=== PATIENT | female | born 1935 | race Caucasian/White ===

== ENCOUNTER 2017-12-15 08:55 | Outpatient (CLI) | payer MEDICARE, BC | END 2017-12-15 08:56 | disposition home or self-care (01) | LOC: BICMAMMO 08:55 | PROVIDERS: ATTEND Obstetrics & Gynecology | DX: Z12.31 Encounter for screening mammogram for malignant neoplasm of breast (principal); Z80.3 Family history of malignant neoplasm of breast | CPT/HCPCS: 77063; 77067 ==

== ENCOUNTER 2018-05-25 09:47 | Outpatient (CLI) | payer MEDICARE, BC ==
--- NOTE | 2018-05-25 12:05 | RAD ---
BARIUM SWALLOW: HISTORY: Dyspnea. COMPARISON: None. TECHNIQUE/FINDINGS: The patient was brought to the fluoroscopy suite. All questions were answered. The patient was initially given gas-forming crystals. The patient tolerated this well. Subsequently , thick liquid contrast was given. Primary and secondary peristalsis was normal. No extrinsic mass effect. No diverticulum. No stricture. Next, the patient was given a barium tablet. The patient tolerated this well. Next, the patient was put in the [place] position and give thin liquid contrast, to continuously drain. The patient tolerated this well. Primary and secondary peristalsis is normal. No reflux. No tertia ry contractions. The patient was given a barium tablet, which passed with ease, without stricture. FLUOROSCOPY TIME: 0.8 minutes. IMPRESSION: Normal examination. No significant reflux, hernia, or stricture. POS: AARTI
== END 2018-05-25 09:48 | disposition home or self-care (01) ==
LOC: RAD 09:47
PROVIDERS: ATTEND Family Medicine
DX: R13.10 Dysphagia, unspecified (principal)
CPT/HCPCS: 74220

== ENCOUNTER 2019-04-01 14:28 | Outpatient (CLI) | payer MEDICARE, BC ==
--- NOTE | 2019-04-01 17:40 | MMO ---
Bilateral MAMMO Bilat Screen [facility]. CLINICAL HISTORY: Patient is 83 years old and is seen for screening. The patient has the following family history of breast cancer: sister, at age 77, malignant (generic). The patient has no personal history of cancer. VIEWS: The views performed were: bilateral craniocaudal with tomosynthesis and bilateral mediolateral oblique with tomosynthesis. FILMS COMPARED: The present examination has been compared to prior imaging studies performed at [facility] on 11/21/2012, 01/14/2014, 12/02/2016 and 12/15/2017. MAMMOGRAM FINDINGS: There are scattered fibroglandular densities. There are no suspicious masses, suspicious calcifications, or new areas of architectural distortion. IMPRESSION: THERE IS NO MAMMOGRAPHIC EVIDENCE OF MALIGNANCY. A ROUTINE FOLLOW-UP MAMMOGRAM IN 1 YEAR IS RECOMMENDED. THE RESULTS OF THIS EXAM WERE SENT TO THE PATIENT. ACR BI-RADS Category 1 - Negative MAMMOGRAPHY NOTE: 1. A negative mammogram report should not delay a biopsy if a dominant of clinically suspicious mass is present. 2. Approximately 10% to 15% of breast cancers are not detected by mammography. 3. Adenosis and dense breasts may obscure an underlying neoplasm.
== END 2019-04-01 14:29 | disposition home or self-care (01) ==
LOC: BICMAMMO 14:28
PROVIDERS: ATTEND Obstetrics & Gynecology
DX: Z12.31 Encounter for screening mammogram for malignant neoplasm of breast (principal); Z80.3 Family history of malignant neoplasm of breast
CPT/HCPCS: 77063; 77067

== ENCOUNTER 2019-07-23 11:19 | Outpatient (CLI) | payer OTHER | END 2019-07-23 11:20 | disposition home or self-care (01) | LOC: DTY/OP 11:19 | PROVIDERS: ATTEND Family Medicine | DX: R13.10 Dysphagia, unspecified (principal); K21.9 Gastro-esophageal reflux disease without esophagitis; F43.21 Adjustment disorder with depressed mood; E78.5 Hyperlipidemia, unspecified | CPT/HCPCS: 97802 ==

== ENCOUNTER 2021-05-15 20:58 | Inpatient (IN) | payer MEDICARE, BC ==
[2021-05-15] MEDS ORDERED: Lidocaine 1% (PF) 30 ML VIAL ONE (21:16)
[2021-05-15 21:36] LABS: #Basophils 0.1 thou/uL (0.0-0.2); #Eosinphils 0.1 thou/uL (0.0-0.7); #Lymphocytes 4.3 thou/uL (1.20-3.40); #Monocytes 0.6 thou/uL (0.11-0.59); #Neutrophils 5.6 thou/uL (1.40-6.50); %Basophils 0.9 % (0.0-1.0); %Eosinophils 0.8 % (0.0-10.0); %Lymphocytes 40.2 % (21.0-51.0); %Monocytes 5.2 % (0.0-10.0); %Neutrophils 52.9 % (42.0-75.0); Hemoglobin 15.7 g/dL (12.0-16.0); Mean Corpuscular Hemoglobin 33.2 pg (27.0-31.0); Mean Corpuscular Volume 97.6 fL (78.0-98.0); Mean Platelet Volume 7.9 fL (7.4-10.4); Platelet Count 232 thou/uL (130-400); RBC Distribution Width 11.6 % (11.5-14.5); Red Blood Cell (RBC) Count 4.73 mill/uL (4.20-5.40); White Blood Cell (WBC) Count 10.6 thou/uL (4.8-10.8)
[2021-05-15 22:05] LABS: ALT (SGPT) 64 U/L (8-55); AST (SGOT) 107 U/L (5-34); Albumin 4.2 g/dL (3.4-4.8); Alkaline Phosphatase 55 U/L (40-110); Anion Gap 21 mmol/L (10-20); BUN (Urea Nitrogen) 13 mg/dL (9.8-20.1); Bilirubin, Total 0.8 mg/dL (0.2-1.2); Calc. Creatinine Clearance 0 mL/min (70-130); Calcium 9.5 mg/dL (7.8-10.44); Carbon Dioxide 17 mmol/L (23-31); Chloride 101 mmol/L (98-107); Globulin 2.3 g/dL (2.4-3.5); Glucose 142 mg/dL (83-110); Potassium 3.7 mmol/L (3.5-5.1); Protein, Total 6.5 g/dL (5.8-8.1); Sodium 135 mmol/L (136-145)
[2021-05-15] MEDS ORDERED: Heparin 10,000 UNITS/ 10 ML VIAL ONE (22:19)
[2021-05-15 22:20] LABS: CKMB 3.2 ng/mL (0-6.6)
[2021-05-15 22:26] LABS: SARS-CoV-2 NAA Rapid Test Not Detected (NotDetected)
[2021-05-15] MEDS ORDERED: Adenosine 6 MG/2 ML VIAL ONE (22:28)
[2021-05-15 23:18] LABS: Actual Bicarbonate (HCO3a) 9.5 mEq/L (22-28); Base Excess (BEa) -23.7 mEq/L (-2.0 to +3.0); CO2 Tension 50.3 mmHg (35.0-45.0); Carboxyhemoglobin (COHb) 0.6 gm% (0.0-3.0); Hemoglobin (Hb) 14.8 g/dL (12.0-16.0); O2 Tension (PaO2), arterial 62.1 mmHg (> 60.0)
[2021-05-15 23:19] LABS: Analyzer IN Cardio OR; Calcium, Ionized (arterial) 1.12 mmol/L (1.12-1.30); Potassium - ABG Lab 2.73 mmol/L (3.70-5.30); Puncture Site Arterial Line
[2021-05-15 23:20] LABS: ALV-art Gradient 588.025 mmHg (0-20)
[2021-05-15] MEDS ORDERED: Propofol BOLUS 1,000 MG/100 ML VIAL IV PRN (23:45)
[2021-05-15] MEDS ORDERED: Fentanyl BOLUS 250 ML IVPB PRN (23:45)
[2021-05-15] MEDS ORDERED: Fentanyl CADD 100 ML IV SCH (23:45)
[2021-05-15] MEDS ORDERED: Lorazepam 2 MG/ML VIAL SLOW IVP PRN (23:45)
[2021-05-15] MEDS ORDERED: DISCONTINUE PREVIOUS NARCOTIC PAIN MEDICATIONS AND BENZODIAZEPINES FS SCH (23:45)
[2021-05-15] MEDS ORDERED: Clopidogrel Bisulfate 300 MG TAB PO SCH (23:45)
[2021-05-15] MEDS ORDERED: Propofol 1,000 MG/100 ML VIAL IV PRN (23:45)
[2021-05-15] MEDS ORDERED: Morphine 2 MG/ML VIAL SLOW IVP PRN (23:45)
[2021-05-15 23:57] LABS: Actual Bicarbonate (HCO3a) 14.2 mEq/L (22-28); CO2 Tension 27.9 mmHg (35.0-45.0); Calcium, Ionized (arterial) 1.06 mmol/L (1.12-1.30); Hemoglobin (Hb) 16.8 g/dL (12.0-16.0); Potassium - ABG Lab 2.97 mmol/L (3.70-5.30); pH, Arterial 7.32 (7.35-7.45)
[2021-05-16 00:29] LABS: O2 Tension (PaO2), arterial 59.3 mmHg (> 60.0); Puncture Site Arterial Line
[2021-05-16 00:30] LABS: ALV-art Gradient 618.825 mmHg (0-20)
[2021-05-16 00:46] LABS: Potassium 2.7 mmol/L (3.5-5.1)
[2021-05-16] MEDS ORDERED: Electrolyte Replacement Protocol 1 EACH FS PRN (00:46)
[2021-05-16 00:52] LABS: BUN (Urea Nitrogen) 15 mg/dL (9.8-20.1); Calc. Creatinine Clearance 40 mL/min (70-130); Chloride 101 mmol/L (98-107); Glucose 441 mg/dL (83-110); Sodium 132 mmol/L (136-145)
[2021-05-16 00:54] LABS: Calcium 7.6 mg/dL (7.8-10.44)
[2021-05-16 01:07] LABS: Carbon Dioxide 15 mmol/L (23-31)
[2021-05-16 01:08] LABS: Anion Gap 19 mmol/L (10-20)
[2021-05-16] MEDS: Potassium Chloride 40 MEQ in Sodium Chloride 0.9% 250 ML 250 ML IVPB SCH ×2 (01:16→06:26)
[2021-05-16] MEDS: Sodium Chloride 0.9% 1,000 ML IV SCH ×2 (01:16→08:12)
[2021-05-16] MEDS ORDERED: Fentanyl CADD 100 ML ONE (02:34)
[2021-05-16] MEDS: Amiodarone 450 MG, Admixture Fee 1 EACH in Dextrose 5% in Water 250 ML IVPB SCH ×2 (02:47→16:29)
[2021-05-16] MEDS ORDERED: EPINEPHrine 4 MG in Dextrose 5% in Water 250 ML IV SCH (04:00)
[2021-05-16 04:55] LABS: ALT (SGPT) 138 U/L (8-55); AST (SGOT) 438 U/L (5-34); Albumin 2.9 g/dL (3.4-4.8); Alkaline Phosphatase 59 U/L (40-110); Anion Gap 20 mmol/L (10-20); BUN (Urea Nitrogen) 19 mg/dL (9.8-20.1); Bilirubin, Total 0.6 mg/dL (0.2-1.2); Calc. Creatinine Clearance 30 mL/min (70-130); Carbon Dioxide 13 mmol/L (23-31); Chloride 103 mmol/L (98-107); Globulin 2.2 g/dL (2.4-3.5); Glucose 375 mg/dL (83-110); Potassium 3.7 mmol/L (3.5-5.1); Protein, Total 5.1 g/dL (5.8-8.1); Sodium 132 mmol/L (136-145)
[2021-05-16 05:18] LABS: Hemoglobin 16.9 g/dL (12.0-16.0); Mean Corpuscular HGB CONC 35.6 g/dL (32.0-36.0); Mean Corpuscular Hemoglobin 34.5 pg (27.0-31.0); Mean Corpuscular Volume 97.1 fL (78.0-98.0); Mean Platelet Volume 7.6 fL (7.4-10.4); Platelet Count 248 thou/uL (130-400); RBC Distribution Width 11.8 % (11.5-14.5); White Blood Cell (WBC) Count 32.1 thou/uL (4.8-10.8)
[2021-05-16 06:33] LABS: Band 25 % (5-11); Eosinophils 1 % (0-10); Lymphocytes 1 % (21-51); MDiff Complete? YES; Monocytes 2 % (0-10); Neutrophil 71 % (42-75)
[2021-05-16 06:36] LABS: Actual Bicarbonate (HCO3a) 13.4 mEq/L (22-28); Base Excess (BEa) -10.3 mEq/L (-2.0 to +3.0); CO2 Tension 26.1 mmHg (35.0-45.0); Calcium, Ionized (arterial) 1.08 mmol/L (1.12-1.30); Carboxyhemoglobin (COHb) 0.3 gm% (0.0-3.0); Hemoglobin (Hb) 17.9 g/dL (12.0-16.0); O2 Tension (PaO2), arterial 90.4 mmHg (> 60.0); Potassium - ABG Lab 3.51 mmol/L (3.70-5.30); pH, Arterial 7.33 (7.35-7.45)
[2021-05-16 06:42] LABS: ALV-art Gradient 518.675 mmHg (0-20); Puncture Site Arterial Line
[2021-05-16] MEDS ORDERED: DOBUTamine 500 mg/250 ml 250 ML ONE (07:31)
[2021-05-16] MEDS: Aspirin Chewable 81 MG TAB PO SCH ×2 (08:11→14:38)
[2021-05-16] MEDS: Clopidogrel Bisulfate 75 MG TAB PO SCH (08:11)
[2021-05-16 08:29] LABS: CKMB 257.7 ng/mL (0-6.6)
[2021-05-16 08:45] LABS: Troponin I 104.738 ng/mL (< 0.028)
[2021-05-16] MEDS ORDERED: Cefepime 1 GM in Sodium Chloride 0.9% 100 ML IVPB SCH (09:00)
[2021-05-16] MEDS ORDERED: Lactated Ringer's 500 ML IV SCH (09:45)
[2021-05-16 09:51] LABS: Actual Bicarbonate (HCO3a) 14.2 mEq/L (22-28); Base Excess (BEa) -11.7 mEq/L (-2.0 to +3.0); CO2 Tension 33.2 mmHg (35.0-45.0); Calcium, Ionized (arterial) 1.12 mmol/L (1.12-1.30); Carboxyhemoglobin (COHb) 0.2 gm% (0.0-3.0); Hemoglobin (Hb) 16.9 g/dL (12.0-16.0); Potassium - ABG Lab 3.93 mmol/L (3.70-5.30)
[2021-05-16 09:58] LABS: O2 Tension (PaO2), arterial 56.8 mmHg (> 60.0); pH, Arterial 7.25 (7.35-7.45)
[2021-05-16 09:59] LABS: Puncture Site Arterial Line
[2021-05-16] MEDS ORDERED: DOPamine 400 MG/D5W 250 ML 250 ML ONE (10:26)
[2021-05-16] MEDS ORDERED: Vancomycin HCl 1 GM in Sodium Chloride 0.9% 250 ML 300 ML IVPB SCH (12:00)
[2021-05-16 13:51] LABS: CKMB 265.4 ng/mL (0-6.6)
[2021-05-16 14:04] LABS: Critical Call Chem Troponin I RESULT DECREASING; Troponin I 71.222 ng/mL (< 0.028)
[2021-05-16] MEDS: Ipratropium Bromide 2.5 ml Neb NEB SCH ×3 (14:04→23:07)
[2021-05-16] MEDS: Vancomycin 1 GM in Premix Bag 1 BAG IVPB SCH ×2 (14:37→23:18)
[2021-05-16] MEDS: Lactated Ringer's 1,000 ML IV SCH ×2 (14:37→23:18)
[2021-05-16] MEDS: Pantoprazole 40 MG VIAL IVP SCH ×2 (16:08→21:48)
[2021-05-16] MEDS: Cefepime 1 GM in Sodium Chloride 0.9% 100 ML IVPB SCH (16:29)
[2021-05-16] MEDS ORDERED: Phentolamine Mesylate 5 MG VIAL SC PRN (17:54)
[2021-05-16] MEDS: Phentolamine Mesylate 5 MG VIAL SC SCH ×2 (18:16→18:30)
[2021-05-16 20:03] LABS: CKMB 129.1 ng/mL (0-6.6); Critical Call CKMB RESULT DECREASING
[2021-05-16] MEDS ORDERED: Magnesium 5 GM/10 ML Abboject SYRINGE ONE (21:08)
[2021-05-16] MEDS ORDERED: Heparin 10,000 UNITS/ 10 ML VIAL ONE (21:08)
[2021-05-16] MEDS ORDERED: Amiodarone 150 MG/3 ML VIAL ONE (21:08)
[2021-05-16] MEDS ORDERED: EPINEPHrine 1 MG/10 ML Abboject SYRINGE ONE (21:08)
[2021-05-16] MEDS: DOPamine 400 MG/D5W 250 ML 250 ML IVPB SCH (23:17)
[2021-05-16] MEDS: DOBUTamine 500 mg/250 ml 500 MG in Premix Bag 1 BAG IVPB SCH (23:17)
[2021-05-17] MEDS: Cefepime 1 GM in Sodium Chloride 0.9% 100 ML IVPB SCH ×3 (04:31→16:14)
[2021-05-17 05:14] LABS: Phosphorus 2.1 mg/dL (2.3-4.7)
[2021-05-17] MEDS ORDERED: Magnesium 2 GM/50 ML 2 GM in Premix Bag 1 BAG IVPB SCH (05:45)
[2021-05-17] MEDS ORDERED: Fentanyl CADD 100 ML ONE (06:29)
[2021-05-17 06:46] LABS: #Lymphocytes 1.5 thou/uL (1.20-3.40); #Neutrophils 20.6 thou/uL (1.40-6.50); %Basophils 0.1 % (0.0-1.0); %Eosinophils 0.1 % (0.0-10.0); %Lymphocytes 6.3 % (21.0-51.0); %Monocytes 4.4 % (0.0-10.0); %Neutrophils 89.1 % (42.0-75.0); Hemoglobin 12.8 g/dL (12.0-16.0); Mean Corpuscular HGB CONC 34.4 g/dL (32.0-36.0); Mean Corpuscular Hemoglobin 33.5 pg (27.0-31.0); Mean Corpuscular Volume 97.2 fL (78.0-98.0); Mean Platelet Volume 8.1 fL (7.4-10.4); Platelet Count 164 thou/uL (130-400); RBC Distribution Width 11.6 % (11.5-14.5); Red Blood Cell (RBC) Count 3.81 mill/uL (4.20-5.40); White Blood Cell (WBC) Count 23.1 thou/uL (4.8-10.8)
[2021-05-17 06:58] LABS: Anion Gap 11 mmol/L (10-20); BUN (Urea Nitrogen) 22 mg/dL (9.8-20.1); Calc. Creatinine Clearance 44 mL/min (70-130); Calcium 7.9 mg/dL (7.8-10.44); Carbon Dioxide 19 mmol/L (23-31); Chloride 108 mmol/L (98-107); Glucose 136 mg/dL (83-110); Potassium 3.8 mmol/L (3.5-5.1); Sodium 134 mmol/L (136-145)
[2021-05-17] MEDS: Ipratropium Bromide 2.5 ml Neb NEB SCH ×4 (07:59→23:44)
[2021-05-17] MEDS: Amiodarone 450 MG, Admixture Fee 1 EACH in Dextrose 5% in Water 250 ML IVPB SCH (09:17)
[2021-05-17] MEDS: Lactated Ringer's 1,000 ML IV SCH ×3 (09:20→21:56)
[2021-05-17] MEDS: Clopidogrel Bisulfate 75 MG TAB PO SCH (09:21)
[2021-05-17] MEDS: Aspirin Chewable 81 MG TAB PO SCH (09:21)
[2021-05-17] MEDS: Pantoprazole 40 MG VIAL IVP SCH ×2 (09:21→21:56)
[2021-05-17] MEDS: Vancomycin 1 GM in Premix Bag 1 BAG IVPB SCH (12:25)
[2021-05-17] MEDS: Morphine 4 MG/ML VIAL SLOW IVP PRN (16:23)
[2021-05-17] MEDS: Enoxaparin Sodium 80 MG/0.8 ML SYRINGE SC SCH (16:31)
[2021-05-17] MEDS: DOPamine 400 MG/D5W 250 ML 250 ML IVPB SCH (16:34)
[2021-05-18] MEDS: Vancomycin 1 GM in Premix Bag 1 BAG IVPB SCH ×2 (01:04→11:15)
[2021-05-18] MEDS: Amiodarone 450 MG, Admixture Fee 1 EACH in Dextrose 5% in Water 250 ML IVPB SCH ×2 (01:05→15:04)
[2021-05-18] MEDS: Morphine 4 MG/ML VIAL SLOW IVP PRN ×2 (01:37→22:22)
[2021-05-18] MEDS: Cefepime 1 GM in Sodium Chloride 0.9% 100 ML IVPB SCH ×2 (03:13→15:15)
[2021-05-18 05:20] LABS: Hemoglobin 11.1 g/dL (12.0-16.0); Platelet Count 128 thou/uL (130-400)
[2021-05-18 05:42] LABS: Anion Gap 6 mmol/L (10-20); BUN (Urea Nitrogen) 15 mg/dL (9.8-20.1); Calc. Creatinine Clearance 59 mL/min (70-130); Calcium 8.1 mg/dL (7.8-10.44); Carbon Dioxide 26 mmol/L (23-31); Chloride 104 mmol/L (98-107); Glucose 131 mg/dL (83-110); Magnesium 2.1 mg/dL (1.6-2.6); Potassium 3.9 mmol/L (3.5-5.1); Sodium 132 mmol/L (136-145)
[2021-05-18] MEDS: DOBUTamine 500 mg/250 ml 500 MG in Premix Bag 1 BAG IVPB SCH (05:44)
[2021-05-18 05:47] LABS: Phosphorus 1.9 mg/dL (2.3-4.7)
[2021-05-18] MEDS ORDERED: Potassium Phosphate 15 MMOL in Sodium Chloride 0.9% 100 ML IVPB SCH (07:00)
[2021-05-18] MEDS: Ipratropium Bromide 2.5 ml Neb NEB SCH ×3 (07:34→19:26)
[2021-05-18] MEDS: Clopidogrel Bisulfate 75 MG TAB PO SCH (08:55)
[2021-05-18] MEDS: Aspirin Chewable 81 MG TAB PO SCH (08:55)
[2021-05-18] MEDS: Pantoprazole 40 MG VIAL IVP SCH ×2 (08:57→22:22)
[2021-05-18] MEDS: Ketorolac Tromethamine 30 MG/ML VIAL IVP SCH ×2 (11:47→17:03)
[2021-05-18] MEDS: Lactated Ringer's 1,000 ML IV SCH (13:53)
[2021-05-18] MEDS ORDERED: Furosemide 40 MG/4 ML VIAL SLOW IVP SCH (15:00)
[2021-05-18] MEDS: Enoxaparin Sodium 80 MG/0.8 ML SYRINGE SC SCH (16:39)
[2021-05-18] MEDS: guaiFENesin ER 600 MG TAB PO SCH (22:22)
[2021-05-19] MEDS: Ketorolac Tromethamine 30 MG/ML VIAL IVP SCH ×5 (00:12→23:13)
[2021-05-19] MEDS: Ipratropium Bromide 2.5 ml Neb NEB SCH ×5 (00:53→23:05)
[2021-05-19] MEDS: Cefepime 1 GM in Sodium Chloride 0.9% 100 ML IVPB SCH ×2 (03:49→18:15)
[2021-05-19] MEDS: Furosemide 20 MG/2 ML VIAL SLOW IVP SCH ×2 (05:02→14:40)
[2021-05-19] MEDS: Amiodarone 450 MG, Admixture Fee 1 EACH in Dextrose 5% in Water 250 ML IVPB SCH ×2 (06:38→22:45)
[2021-05-19] MEDS: Aspirin Chewable 81 MG TAB PO SCH (09:27)
[2021-05-19] MEDS: guaiFENesin ER 600 MG TAB PO SCH ×2 (09:27→20:47)
[2021-05-19] MEDS: Clopidogrel Bisulfate 75 MG TAB PO SCH (09:27)
[2021-05-19] MEDS: Pantoprazole 40 MG VIAL IVP SCH ×2 (09:32→20:47)
[2021-05-19] MEDS ORDERED: CEFEPIME HCL IN DEXTROSE 5 % 1 GM in Premix Bag 1 BAG IVPB SCH (16:15)
[2021-05-19] MEDS ORDERED: Furosemide 40 MG/4 ML VIAL SLOW IVP SCH (17:30)
[2021-05-19] MEDS: Enoxaparin Sodium 80 MG/0.8 ML SYRINGE SC SCH (17:32)
[2021-05-19] MEDS ORDERED: hydrALAZINE 20 MG/ML VIAL SLOW IVP PRN (18:17)
[2021-05-19] MEDS ORDERED: ALPRAZolam 0.25 MG TAB PO PRN (18:18)
[2021-05-19] MEDS ORDERED: hydrALAZINE 20 MG/ML VIAL SLOW IVP SCH (18:30)
[2021-05-19] MEDS ORDERED: Potassium Chloride 20 MEQ TAB PO SCH (18:45)
[2021-05-19] MEDS: DOBUTamine 500 mg/250 ml 500 MG in Premix Bag 1 BAG IVPB SCH (20:47)
[2021-05-19] MEDS: Lisinopril 10 MG TAB PO SCH (20:47)
[2021-05-19] MEDS: ALPRAZolam 0.5 MG TAB PO SCH (20:47)
[2021-05-19] MEDS: Morphine 4 MG/ML VIAL SLOW IVP PRN (22:53)
[2021-05-20] MEDS ORDERED: Ipratropium Bromide 2.5 ml Neb ONE (04:00)
[2021-05-20] MEDS: Morphine 4 MG/ML VIAL SLOW IVP PRN (04:05)
[2021-05-20] MEDS: CEFEPIME HCL IN DEXTROSE 5 % 1 GM in Premix Bag 1 BAG IVPB SCH ×2 (04:32→16:11)
[2021-05-20] MEDS: Ketorolac Tromethamine 30 MG/ML VIAL IVP SCH ×3 (06:04→16:07)
[2021-05-20] MEDS: Furosemide 40 MG/4 ML VIAL SLOW IVP SCH ×2 (06:04→16:07)
[2021-05-20] MEDS: Furosemide 20 MG/2 ML VIAL SLOW IVP SCH (06:04)
[2021-05-20] MEDS: Ipratropium Bromide 2.5 ml Neb NEB SCH ×4 (08:00→23:43)
[2021-05-20] MEDS: Potassium Chloride 20 MEQ TAB PO SCH (09:22)
[2021-05-20] MEDS: Clopidogrel Bisulfate 75 MG TAB PO SCH (09:22)
[2021-05-20] MEDS: guaiFENesin ER 600 MG TAB PO SCH ×2 (09:23→20:31)
[2021-05-20] MEDS: Lisinopril 10 MG TAB PO SCH ×2 (09:23→20:30)
[2021-05-20] MEDS: Aspirin Chewable 81 MG TAB PO SCH (09:25)
[2021-05-20] MEDS: Pantoprazole 40 MG VIAL IVP SCH (09:25)
[2021-05-20] MEDS ORDERED: traMADol HCl 50 MG TAB PO PRN (09:26)
[2021-05-20] MEDS ORDERED: DOBUTamine 500 mg/250 ml 500 MG in Premix Bag 1 BAG IVPB SCH (09:50)
[2021-05-20] MEDS: Levothyroxine Sodium 100 MCG TAB PO SCH (10:01)
[2021-05-20 10:29] LABS: Anion Gap 12 mmol/L (10-20); BUN (Urea Nitrogen) 25 mg/dL (9.8-20.1); Calc. Creatinine Clearance 53 mL/min (70-130); Carbon Dioxide 27 mmol/L (23-31); Chloride 101 mmol/L (98-107); Glucose 118 mg/dL (83-110); Magnesium 1.7 mg/dL (1.6-2.6); Sodium 137 mmol/L (136-145)
[2021-05-20 10:43] LABS: Phosphorus 1.4 mg/dL (2.3-4.7); Potassium 2.8 mmol/L (3.5-5.1)
[2021-05-20] MEDS ORDERED: Magnesium 2 GM/50 ML 2 GM in Premix Bag 1 BAG IVPB SCH (11:00)
[2021-05-20] MEDS ORDERED: Potassium Phosphate 22 MMOL in Sodium Chloride 0.9% 250 ML 250 ML IVPB SCH (12:00)
[2021-05-20] MEDS ORDERED: Potassium Chloride 20 MEQ TAB PO SCH (12:00)
[2021-05-20] MEDS: Escitalopram Oxalate 10 mg Tablet PO SCH (12:05)
[2021-05-20] MEDS: Carvedilol 3.125 MG TAB PO SCH ×2 (12:05→16:09)
[2021-05-20] MEDS: Amiodarone 200 MG TAB PO SCH ×3 (12:06→20:31)
[2021-05-20] MEDS: Enoxaparin Sodium 80 MG/0.8 ML SYRINGE SC SCH (16:08)
[2021-05-20] MEDS: ALPRAZolam 0.5 MG TAB PO SCH (20:30)
[2021-05-21] MEDS: Ketorolac Tromethamine 30 MG/ML VIAL IVP SCH ×5 (00:40→23:52)
[2021-05-21] MEDS: CEFEPIME HCL IN DEXTROSE 5 % 1 GM in Premix Bag 1 BAG IVPB SCH ×2 (04:57→15:40)
[2021-05-21] MEDS: Furosemide 40 MG/4 ML VIAL SLOW IVP SCH (06:16)
[2021-05-21] MEDS: Levothyroxine Sodium 100 MCG TAB PO SCH (06:17)
[2021-05-21] MEDS: Ipratropium Bromide 2.5 ml Neb NEB SCH ×4 (08:00→23:52)
[2021-05-21] MEDS ORDERED: Furosemide 40 MG TAB PO SCH (09:00)
[2021-05-21] MEDS ORDERED: Furosemide 40 MG/4 ML VIAL IVP SCH (09:00)
[2021-05-21] MEDS ORDERED: Carvedilol 3.125 MG TAB PO SCH (09:00)
[2021-05-21 09:34] LABS: #Eosinphils 0.2 thou/uL (0.0-0.7); #Lymphocytes 1.3 thou/uL (1.20-3.40); #Monocytes 0.9 thou/uL (0.11-0.59); #Neutrophils 10.3 thou/uL (1.40-6.50); %Eosinophils 1.6 % (0.0-10.0); %Lymphocytes 10.2 % (21.0-51.0); %Monocytes 6.8 % (0.0-10.0); %Neutrophils 81.3 % (42.0-75.0); Hemoglobin 13.3 g/dL (12.0-16.0); Mean Corpuscular HGB CONC 34.8 g/dL (32.0-36.0); Mean Corpuscular Hemoglobin 33.6 pg (27.0-31.0); Mean Corpuscular Volume 96.3 fL (78.0-98.0); Platelet Count 241 thou/uL (130-400); RBC Distribution Width 11.8 % (11.5-14.5); Red Blood Cell (RBC) Count 3.95 mill/uL (4.20-5.40); White Blood Cell (WBC) Count 12.7 thou/uL (4.8-10.8)
[2021-05-21 10:02] LABS: Anion Gap 13 mmol/L (10-20); BUN (Urea Nitrogen) 25 mg/dL (9.8-20.1); Calc. Creatinine Clearance 58 mL/min (70-130); Carbon Dioxide 27 mmol/L (23-31); Chloride 100 mmol/L (98-107); Glucose 83 mg/dL (83-110); Magnesium 1.8 mg/dL (1.6-2.6); Phosphorus 2.7 mg/dL (2.3-4.7); Potassium 3.3 mmol/L (3.5-5.1); Sodium 137 mmol/L (136-145)
[2021-05-21] MEDS: Furosemide 40 MG TAB PO SCH ×2 (11:06→15:37)
[2021-05-21] MEDS: Escitalopram Oxalate 10 mg Tablet PO SCH (11:12)
[2021-05-21] MEDS: Clopidogrel Bisulfate 75 MG TAB PO SCH (11:13)
[2021-05-21] MEDS: guaiFENesin ER 600 MG TAB PO SCH ×2 (11:13→20:05)
[2021-05-21] MEDS: Lisinopril 10 MG TAB PO SCH ×2 (11:14→20:05)
[2021-05-21] MEDS: Amiodarone 200 MG TAB PO SCH ×3 (11:14→20:05)
[2021-05-21] MEDS ORDERED: Magnesium 2 GM/50 ML 2 GM in Premix Bag 1 BAG IVPB SCH (11:15)
[2021-05-21] MEDS: Potassium Chloride 20 MEQ TAB PO SCH (11:15)
[2021-05-21] MEDS ORDERED: Potassium Chloride 20 MEQ TAB PO SCH (11:15)
[2021-05-21] MEDS: Aspirin Chewable 81 MG TAB PO SCH (11:15)
[2021-05-21] MEDS: Carvedilol 3.125 MG TAB PO SCH ×2 (11:37→15:37)
[2021-05-21] MEDS: Enoxaparin Sodium 40 MG/0.4 ML SYRINGE SC SCH (20:05)
[2021-05-21] MEDS: Atorvastatin Calcium 40 MG TAB PO SCH (20:05)
[2021-05-21] MEDS: ALPRAZolam 0.5 MG TAB PO SCH (20:05)
[2021-05-22] MEDS: CEFEPIME HCL IN DEXTROSE 5 % 1 GM in Premix Bag 1 BAG IVPB SCH ×2 (04:44→17:07)
[2021-05-22] MEDS: Ketorolac Tromethamine 30 MG/ML VIAL IVP SCH ×2 (05:00→13:43)
[2021-05-22] MEDS: Levothyroxine Sodium 100 MCG TAB PO SCH (05:00)
[2021-05-22] MEDS: Ipratropium Bromide 2.5 ml Neb NEB SCH ×2 (08:05→12:18)
[2021-05-22] MEDS: Escitalopram Oxalate 10 mg Tablet PO SCH (09:17)
[2021-05-22] MEDS: Amiodarone 200 MG TAB PO SCH ×3 (09:17→20:45)
[2021-05-22] MEDS: Potassium Chloride 20 MEQ TAB PO SCH (09:17)
[2021-05-22] MEDS: Carvedilol 3.125 MG TAB PO SCH ×2 (09:17→18:10)
[2021-05-22] MEDS: Furosemide 40 MG TAB PO SCH ×2 (09:17→13:43)
[2021-05-22] MEDS: Clopidogrel Bisulfate 75 MG TAB PO SCH (09:17)
[2021-05-22] MEDS: Lisinopril 10 MG TAB PO SCH ×2 (09:18→20:45)
[2021-05-22] MEDS: Aspirin Chewable 81 MG TAB PO SCH (09:18)
[2021-05-22] MEDS: guaiFENesin ER 600 MG TAB PO SCH ×2 (09:18→20:45)
[2021-05-22 10:28] LABS: Anion Gap 12 mmol/L (10-20); BUN (Urea Nitrogen) 27 mg/dL (9.8-20.1); Calc. Creatinine Clearance 61 mL/min (70-130); Carbon Dioxide 28 mmol/L (23-31); Chloride 101 mmol/L (98-107); Potassium 3.6 mmol/L (3.5-5.1); Sodium 137 mmol/L (136-145)
[2021-05-22 10:29] LABS: Calcium 8.9 mg/dL (7.8-10.44); Glucose 108 mg/dL (83-110); Magnesium 2.1 mg/dL (1.6-2.6)
[2021-05-22] MEDS: Enoxaparin Sodium 40 MG/0.4 ML SYRINGE SC SCH (20:44)
[2021-05-22] MEDS: ALPRAZolam 0.5 MG TAB PO SCH (20:44)
[2021-05-22] MEDS: Atorvastatin Calcium 40 MG TAB PO SCH (20:45)
[2021-05-22] MEDS: CeleCOXIB 100 MG CAP PO SCH (20:46)
[2021-05-23 01:21] LABS: SARS-CoV-2 PCR by NAA Not Detected (NotDetected)
[2021-05-23] MEDS: Levothyroxine Sodium 100 MCG TAB PO SCH (05:29)
[2021-05-23] MEDS: Escitalopram Oxalate 10 mg Tablet PO SCH (08:17)
[2021-05-23] MEDS: Clopidogrel Bisulfate 75 MG TAB PO SCH (08:17)
[2021-05-23] MEDS: Lisinopril 10 MG TAB PO SCH ×2 (08:17→20:24)
[2021-05-23] MEDS: Amiodarone 200 MG TAB PO SCH ×3 (08:17→20:24)
[2021-05-23] MEDS: Carvedilol 3.125 MG TAB PO SCH ×2 (08:17→17:47)
[2021-05-23] MEDS: Potassium Chloride 20 MEQ TAB PO SCH (08:17)
[2021-05-23] MEDS: guaiFENesin ER 600 MG TAB PO SCH ×2 (08:17→20:25)
[2021-05-23] MEDS: Furosemide 40 MG TAB PO SCH ×2 (08:17→14:42)
[2021-05-23] MEDS: Aspirin Chewable 81 MG TAB PO SCH (08:18)
[2021-05-23] MEDS: CeleCOXIB 100 MG CAP PO SCH ×2 (08:18→20:24)
[2021-05-23] MEDS: Atorvastatin Calcium 40 MG TAB PO SCH (20:24)
[2021-05-23] MEDS: ALPRAZolam 0.5 MG TAB PO SCH (20:25)
[2021-05-23] MEDS: Enoxaparin Sodium 40 MG/0.4 ML SYRINGE SC SCH (20:25)
[2021-05-24] MEDS: Levothyroxine Sodium 100 MCG TAB PO SCH (06:12)
[2021-05-24 08:40] LABS: Hemoglobin 12.6 g/dL (12.0-16.0); Platelet Count 248 thou/uL (130-400)
[2021-05-24] MEDS: Potassium Chloride 20 MEQ TAB PO SCH (09:10)
[2021-05-24] MEDS: Carvedilol 3.125 MG TAB PO SCH ×2 (09:10→17:32)
[2021-05-24] MEDS: Furosemide 40 MG TAB PO SCH ×2 (09:11→14:25)
[2021-05-24] MEDS: guaiFENesin ER 600 MG TAB PO SCH ×2 (09:12→20:14)
[2021-05-24] MEDS: Amiodarone 200 MG TAB PO SCH ×3 (09:12→20:14)
[2021-05-24] MEDS: Lisinopril 10 MG TAB PO SCH (09:12)
[2021-05-24] MEDS: CeleCOXIB 100 MG CAP PO SCH ×2 (09:12→20:14)
[2021-05-24] MEDS: Clopidogrel Bisulfate 75 MG TAB PO SCH (09:12)
[2021-05-24] MEDS: Aspirin Chewable 81 MG TAB PO SCH (09:12)
[2021-05-24] MEDS: Escitalopram Oxalate 10 mg Tablet PO SCH (09:12)
[2021-05-24 13:12] VITALS: BMI 24.2
[2021-05-24 15:44] VITALS: BP 122/56
[2021-05-24] MEDS: Enoxaparin Sodium 40 MG/0.4 ML SYRINGE SC SCH (20:14)
[2021-05-24] MEDS: Atorvastatin Calcium 40 MG TAB PO SCH (20:14)
[2021-05-24] MEDS: ALPRAZolam 0.5 MG TAB PO SCH (20:40)
[2021-05-24 20:43] VITALS: TEMP 98.1
[2021-05-25] MEDS ORDERED: Lisinopril 20 MG TAB PO SCH (09:00)
== END 2021-05-24 22:20 | DRG 246 ==
LOC: ERS 20:58 → CCL 21:47 → CCU 22:00 → IMCU/EMU 05-18 20:42
PROVIDERS: ADMIT Internal Medicine Cardiovascular Disease; ATTEND Internal Medicine Cardiovascular Disease
PROC: 5A12012 Performance of Cardiac Output, Single, Manual (ICD-10-PCS; principal; 2021-05-15)
PROC: 027035Z Dilation of Coronary Artery, One Artery with Two Drug-eluting Intraluminal Devices, Percutaneous Approach (ICD-10-PCS; 2021-05-15)
PROC: 4A023N7 Measurement of Cardiac Sampling and Pressure, Left Heart, Percutaneous Approach (ICD-10-PCS; 2021-05-15)
PROC: B2111ZZ Fluoroscopy of Multiple Coronary Arteries using Low Osmolar Contrast (ICD-10-PCS; 2021-05-15)
PROC: 02HV33Z Insertion of Infusion Device into Superior Vena Cava, Percutaneous Approach (ICD-10-PCS; 2021-05-16)
PROC: 5A1945Z Respiratory Ventilation, 24-96 Consecutive Hours (ICD-10-PCS; 2021-05-16)
PROC: 0BH18EZ Insertion of Endotracheal Airway into Trachea, Via Natural or Artificial Opening Endoscopic (ICD-10-PCS; 2021-05-16)
DX: I21.09 ST elevation (STEMI) myocardial infarction involving other coronary artery of anterior wall (principal); I46.9 Cardiac arrest, cause unspecified; J96.01 Acute respiratory failure with hypoxia; J69.0 Pneumonitis due to inhalation of food and vomit; N17.9 Acute kidney failure, unspecified; E87.2 Acidosis; J93.9 Pneumothorax, unspecified; J81.1 Chronic pulmonary edema; M96.89 Other intraoperative and postprocedural complications and disorders of the musculoskeletal system; E87.1 Hypo-osmolality and hyponatremia; Z86.718 Personal history of other venous thrombosis and embolism; N28.9 Disorder of kidney and ureter, unspecified; Y84.8 Other medical procedures as the cause of abnormal reaction of the patient, or of later complication, without mention of misadventure at the time of the procedure; Y71.8 Miscellaneous cardiovascular devices associated with adverse incidents, not elsewhere classified; F41.9 Anxiety disorder, unspecified; I48.91 Unspecified atrial fibrillation; E87.6 Hypokalemia; I25.5 Ischemic cardiomyopathy; N81.6 Rectocele; I50.9 Heart failure, unspecified; I08.1 Rheumatic disorders of both mitral and tricuspid valves
CPT/HCPCS: 0240U; 31500; 51702; 71045; 76942; 80048; 80053; 82553; 82805; 83735; 83880; 84100; 84484; 85014; 85018; 85025; 85049; 85347; 87324; 87449; 92928; 93005; 93010; 93306; 93454; 93798; 94002; 94003; 94640; 96374; 96375; 96376; C1769; C1874; C9113; C9600; J0153; J0171; J0282; J0360; J0692; J1250; J1265; J1644; J1650; J1885; J1940; J2001; J2270; J2760; J3010; J3370; J3475; J3480; J3490; J7050; J7070; J7620; U0003; U0005

== ENCOUNTER 2021-08-14 14:21 | Inpatient (IN) | payer MEDICARE, BC ==
[2021-08-14] MEDS ORDERED: Aspirin 81 mg Enteric Coated Tablet ONE (14:48)
[2021-08-14 14:52] LABS: #Lymphocytes 0.8 thou/uL (1.20-3.40); #Monocytes 0.9 thou/uL (0.11-0.59); #Neutrophils 12.4 thou/uL (1.40-6.50); %Basophils 0.1 % (0.0-1.0); %Eosinophils 0.1 % (0.0-10.0); %Lymphocytes 5.6 % (21.0-51.0); %Monocytes 6.6 % (0.0-10.0); %Neutrophils 87.6 % (42.0-75.0); Hemoglobin 13.3 g/dL (12.0-16.0); Mean Corpuscular HGB CONC 33.9 g/dL (32.0-36.0); Mean Corpuscular Hemoglobin 33.6 pg (27.0-31.0); Mean Corpuscular Volume 99.2 fL (78.0-98.0); Mean Platelet Volume 8.1 fL (7.4-10.4); Platelet Count 178 thou/uL (130-400); RBC Distribution Width 12.1 % (11.5-14.5); Red Blood Cell (RBC) Count 3.95 mill/uL (4.20-5.40); White Blood Cell (WBC) Count 14.2 thou/uL (4.8-10.8)
[2021-08-14] MEDS ORDERED: Ondansetron PF 4 MG/2 ML Vial ONE (15:12)
[2021-08-14] MEDS ORDERED: Famotidine/PF 20 mg/2ml Vial ONE (15:12)
[2021-08-14 15:13] LABS: ALT (SGPT) 14 U/L (8-55); AST (SGOT) 16 U/L (5-34); Alkaline Phosphatase 58 U/L (40-110); Anion Gap 12 mmol/L (10-20); BUN (Urea Nitrogen) 30 mg/dL (9.8-20.1); Bilirubin, Total 1.5 mg/dL (0.2-1.2); Calc. Creatinine Clearance 0 mL/min (70-130); Calcium 9.1 mg/dL (7.8-10.44); Carbon Dioxide 27 mmol/L (23-31); Chloride 102 mmol/L (98-107); Globulin 2.4 g/dL (2.4-3.5); Glucose 120 mg/dL (83-110); Lipase 20 U/L (8-78); Magnesium 2.1 mg/dL (1.6-2.6); Potassium 4.4 mmol/L (3.5-5.1); Protein, Total 6.4 g/dL (5.8-8.1); Sodium 137 mmol/L (136-145)
[2021-08-14 15:35] LABS: CKMB 0.6 ng/mL (0-6.6)
[2021-08-14] MEDS ORDERED: Furosemide 40 MG/4 ML VIAL ONE (19:13)
[2021-08-14] MEDS ORDERED: Acetaminophen 325 MG TAB ONE (19:13)
[2021-08-14] MEDS ORDERED: Acetaminophen 325 MG TAB PO PRN (19:20)
[2021-08-14] MEDS ORDERED: Guaifenesin DM 100-10/5 ML UDCUP PO PRN (19:20)
[2021-08-14] MEDS ORDERED: Nitroglycerin 0.4 MG TAB (25 Tab Bottle) SL PRN (19:27)
[2021-08-14] MEDS ORDERED: Ondansetron PF 4 MG/2 ML Vial IVP PRN (19:31)
[2021-08-14 19:45] LABS: Bacteria/HPF 4+ HPF (None Seen); Bilirubin Negative (Negative); Blood, Urine 1+ (Negative); Clarity Turbid (Clear); Glucose, Urine (Dipstick) Normal (Negative); Ketone, Urine Negative (Negative); Leukocyte 250 Leu/uL (Negative); Nitrite 2+ (Negative); Protein, Urine (Dipstick) 20 mg/dL (Neg-Trace); RBC/HPF 0-3 HPF (0-3); Specific Gravity, Urine 1.011 (1.002-1.036); Urobilinogen Normal mg/dL (Less than 2)
[2021-08-14] MEDS ORDERED: hydrALAZINE 20 MG/ML VIAL SLOW IVP PRN (20:02)
[2021-08-14] MEDS ORDERED: Sodium Chloride 0.9% 1,000 ML IV SCH (20:15)
[2021-08-14] MEDS ORDERED: Famotidine/PF 20 mg/2ml Vial SLOW IVP SCH (21:00)
[2021-08-14 22:01] LABS: Troponin I 0.056 ng/mL (< 0.028)
[2021-08-14] MEDS: cefTRIAXone\\ROCEPHIN 2 GM in Sodium Chloride 0.9% 100 ML IVPB SCH (23:35)
[2021-08-14] MEDS: Atorvastatin Calcium 40 MG TAB PO SCH (23:36)
[2021-08-14 23:50] LABS: Bilirubin Negative (Negative); Blood, Urine Trace (Negative); Clarity Clear (Clear); Glucose, Urine (Dipstick) Normal (Negative); Ketone, Urine Negative (Negative); Leukocyte 75 Leu/uL (Negative); Nitrite Negative (Negative); Protein, Urine (Dipstick) Negative (Neg-Trace); RBC/HPF 0-3 HPF (0-3); Specific Gravity, Urine 1.009 (1.002-1.036); Squamous Epithelial 0-3 HPF (0-3); Urobilinogen Normal mg/dL (Less than 2)
[2021-08-14 23:52] LABS: Bacteria/HPF 1+ HPF (None Seen); Urine Culture Reflex Yes Yes
[2021-08-15 00:13] LABS: Creatinine, Urine 51.15 mg/dL (47-110)
[2021-08-15 00:55] VITALS: BMI 22.8
[2021-08-15 05:06] LABS: #Lymphocytes 0.8 thou/uL (1.20-3.40); #Neutrophils 12.1 thou/uL (1.40-6.50); %Eosinophils 0.2 % (0.0-10.0); %Lymphocytes 5.4 % (21.0-51.0); %Monocytes 7.5 % (0.0-10.0); %Neutrophils 86.9 % (42.0-75.0); Hemoglobin 12.5 g/dL (12.0-16.0); Mean Corpuscular HGB CONC 31.6 g/dL (32.0-36.0); Mean Corpuscular Hemoglobin 31.3 pg (27.0-31.0); Mean Corpuscular Volume 99.2 fL (78.0-98.0); Mean Platelet Volume 8.2 fL (7.4-10.4); Platelet Count 147 thou/uL (130-400); Red Blood Cell (RBC) Count 3.99 mill/uL (4.20-5.40); White Blood Cell (WBC) Count 13.9 thou/uL (4.8-10.8)
[2021-08-15 05:28] LABS: ALT (SGPT) 16 U/L (8-55); AST (SGOT) 17 U/L (5-34); Albumin 3.5 g/dL (3.4-4.8); Alkaline Phosphatase 54 U/L (40-110); Anion Gap 15 mmol/L (10-20); BUN (Urea Nitrogen) 24 mg/dL (9.8-20.1); Calc. Creatinine Clearance 31 mL/min (70-130); Calcium 9.1 mg/dL (7.8-10.44); Carbon Dioxide 24 mmol/L (23-31); Chloride 105 mmol/L (98-107); Globulin 2.6 g/dL (2.4-3.5); Glucose 132 mg/dL (83-110); Potassium 3.6 mmol/L (3.5-5.1); Protein, Total 6.1 g/dL (5.8-8.1); Sodium 140 mmol/L (136-145)
[2021-08-15 05:57] LABS: SARS-CoV-2 NAA Rapid Test Not Detected (NotDetected)
[2021-08-15] MEDS ORDERED: Enoxaparin Sodium 40 MG/0.4 ML SYRINGE SC SCH (09:00)
[2021-08-15] MEDS ORDERED: Aspirin 325 mg Enteric Coated Tablet PO SCH (09:00)
[2021-08-15] MEDS: Famotidine/PF 20 mg/2ml Vial SLOW IVP SCH (09:22)
[2021-08-15] MEDS: Clopidogrel Bisulfate 75 MG TAB PO SCH (09:23)
[2021-08-15] MEDS: Aspirin 81 mg Enteric Coated Tablet PO SCH (09:23)
[2021-08-15] MEDS ORDERED: FLU VACC QS2021-22(65YR UP)/PF 240 MCG/0.7 ML SYRINGE IM ONE (12:00)
[2021-08-15] MEDS: Atorvastatin Calcium 40 MG TAB PO SCH (21:02)
[2021-08-15] MEDS: cefTRIAXone\\ROCEPHIN 2 GM in Sodium Chloride 0.9% 100 ML IVPB SCH (21:03)
[2021-08-16 04:33] LABS: #Lymphocytes 1.5 thou/uL (1.20-3.40); #Neutrophils 7.3 thou/uL (1.40-6.50); %Basophils 0.3 % (0.0-1.0); %Eosinophils 0.2 % (0.0-10.0); %Lymphocytes 14.9 % (21.0-51.0); %Monocytes 9.9 % (0.0-10.0); %Neutrophils 74.8 % (42.0-75.0); Hemoglobin 11.5 g/dL (12.0-16.0); Mean Corpuscular HGB CONC 33.4 g/dL (32.0-36.0); Mean Corpuscular Hemoglobin 33.1 pg (27.0-31.0); Mean Platelet Volume 8.4 fL (7.4-10.4); Platelet Count 146 thou/uL (130-400); RBC Distribution Width 11.9 % (11.5-14.5); Red Blood Cell (RBC) Count 3.47 mill/uL (4.20-5.40); White Blood Cell (WBC) Count 9.8 thou/uL (4.8-10.8)
[2021-08-16 04:57] LABS: Anion Gap 10 mmol/L (10-20); BUN (Urea Nitrogen) 12 mg/dL (9.8-20.1); Calc. Creatinine Clearance 48 mL/min (70-130); Calcium 9.3 mg/dL (7.8-10.44); Carbon Dioxide 25 mmol/L (23-31); Chloride 105 mmol/L (98-107); Glucose 107 mg/dL (83-110); Potassium 3.1 mmol/L (3.5-5.1); Sodium 137 mmol/L (136-145)
[2021-08-16] MEDS: Aspirin 81 mg Enteric Coated Tablet PO SCH (08:22)
[2021-08-16] MEDS: Famotidine/PF 20 mg/2ml Vial SLOW IVP SCH (08:22)
[2021-08-16] MEDS: Clopidogrel Bisulfate 75 MG TAB PO SCH (08:22)
[2021-08-16] MEDS ORDERED: Enoxaparin Sodium 30 MG/0.3 ML SYRINGE SC SCH (09:00)
[2021-08-16 17:22] VITALS: BP 144/78; TEMP 98.3
[2021-08-17] MEDS ORDERED: Enoxaparin Sodium 40 MG/0.4 ML SYRINGE SC SCH (09:00)
[2021-08-17 22:08] LABS: Mycoplasma pneumoniae IgG AB 241 U/mL (0-99); Mycoplasma pneumoniae IgM AB Less than 770 U/mL (0-769)
== END 2021-08-16 17:30 | disposition home or self-care (01) | DRG 871 ==
LOC: ERS 14:21 → 2NO 18:25
PROVIDERS: ADMIT Internal Medicine; ATTEND Internal Medicine
DX: A41.9 Sepsis, unspecified organism (principal); I50.33 Acute on chronic diastolic (congestive) heart failure; N17.9 Acute kidney failure, unspecified; Z20.822 Contact with and (suspected) exposure to COVID-19; Z66 Do not resuscitate; I25.10 Atherosclerotic heart disease of native coronary artery without angina pectoris; I11.0 Hypertensive heart disease with heart failure; E03.9 Hypothyroidism, unspecified; I25.5 Ischemic cardiomyopathy; R07.89 Other chest pain; F41.9 Anxiety disorder, unspecified; Z96.652 Presence of left artificial knee joint; R77.8 Other specified abnormalities of plasma proteins; I08.3 Combined rheumatic disorders of mitral, aortic and tricuspid valves; K21.9 Gastro-esophageal reflux disease without esophagitis; E86.0 Dehydration; I25.2 Old myocardial infarction; Z95.5 Presence of coronary angioplasty implant and graft; Z86.74 Personal history of sudden cardiac arrest; Z86.718 Personal history of other venous thrombosis and embolism; Z79.82 Long term (current) use of aspirin; Z79.899 Other long term (current) drug therapy; Z79.890 Hormone replacement therapy; Z90.710 Acquired absence of both cervix and uterus
CPT/HCPCS: 36415; 71045; 71046; 71250; 74177; 76705; 80048; 80053; 81001; 82553; 82570; 83690; 83735; 83880; 84300; 84484; 84540; 85025; 87040; 87077; 87086; 87186; 87804; 93005; 93306; 94760; J0696; J1650; J1940; J2405; J3490; J7050; S0028; U0002

== ENCOUNTER 2022-02-08 11:32 | Emergency (ER) | payer OTHER, MEDICARE, BC ==
[2022-02-08 12:17] LABS: #Eosinphils 0.1 thou/uL (0.0-0.7); #Lymphocytes 0.9 thou/uL (1.20-3.40); #Monocytes 0.4 thou/uL (0.11-0.59); #Neutrophils 4.5 thou/uL (1.40-6.50); %Basophils 0.3 % (0.0-1.0); %Eosinophils 0.9 % (0.0-10.0); %Lymphocytes 14.7 % (21.0-51.0); %Monocytes 6.5 % (0.0-10.0); %Neutrophils 77.7 % (42.0-75.0); Hemoglobin 13.3 g/dL (12.0-16.0); Mean Corpuscular HGB CONC 33.2 g/dL (32.0-36.0); Mean Corpuscular Volume 99.4 fL (78.0-98.0); Mean Platelet Volume 7.6 fL (7.4-10.4); Platelet Count 159 thou/uL (130-400); RBC Distribution Width 12.8 % (11.5-14.5); Red Blood Cell (RBC) Count 4.04 mill/uL (4.20-5.40); White Blood Cell (WBC) Count 5.8 thou/uL (4.8-10.8)
[2022-02-08 12:21] LABS: ALT (SGPT) 36 U/L (8-55); AST (SGOT) 33 U/L (5-34); Albumin 4.4 g/dL (3.4-4.8); Alkaline Phosphatase 65 U/L (40-110); Anion Gap 12 mmol/L (10-20); BUN (Urea Nitrogen) 21 mg/dL (9.8-20.1); Bilirubin, Total 1.4 mg/dL (0.2-1.2); Calc. Creatinine Clearance 0 mL/min (70-130); Calcium 9.5 mg/dL (7.8-10.44); Carbon Dioxide 30 mmol/L (23-31); Chloride 100 mmol/L (98-107); Globulin 2.5 g/dL (2.4-3.5); Glucose 98 mg/dL (83-110); Potassium 4.4 mmol/L (3.5-5.1); Protein, Total 6.9 g/dL (5.8-8.1); Sodium 138 mmol/L (136-145)
[2022-02-08 12:56] LABS: Bilirubin Negative (Negative); Blood, Urine Negative (Negative); Clarity Clear (Clear); Glucose, Urine (Dipstick) Normal (Negative); Ketone, Urine Negative (Negative); Leukocyte 25 Leu/uL (Negative); Nitrite Negative (Negative); Protein, Urine (Dipstick) Negative (Neg-Trace); RBC/HPF 0-3 HPF (0-3); Specific Gravity, Urine 1.006 (1.002-1.036); Squamous Epithelial None Seen HPF (0-3); Urobilinogen Normal mg/dL (Less than 2)
[2022-02-08 12:58] LABS: Bacteria/HPF 1+ HPF (None Seen)
== END 2022-02-08 13:43 | disposition home or self-care (01) ==
LOC: ERS 11:32
DX: M25.552 Pain in left hip (principal); Z86.718 Personal history of other venous thrombosis and embolism; I25.2 Old myocardial infarction; W01.0XXA Fall on same level from slipping, tripping and stumbling without subsequent striking against object, initial encounter
CPT/HCPCS: 80053; 81003; 81015; 84484; 85025

== ENCOUNTER 2022-03-03 19:04 | Inpatient (IN) | payer MEDICARE, BC ==
[2022-03-03 20:15] LABS: #Basophils 0.1 thou/uL (0.0-0.2); #Lymphocytes 0.7 thou/uL (1.20-3.40); #Monocytes 0.5 thou/uL (0.11-0.59); #Neutrophils 8.3 thou/uL (1.40-6.50); %Basophils 0.6 % (0.0-1.0); %Eosinophils 0.2 % (0.0-10.0); %Lymphocytes 7.3 % (21.0-51.0); %Monocytes 5.7 % (0.0-10.0); %Neutrophils 86.4 % (42.0-75.0); Hemoglobin 12.8 g/dL (12.0-16.0); Mean Corpuscular HGB CONC 33.8 g/dL (32.0-36.0); Mean Corpuscular Hemoglobin 32.8 pg (27.0-31.0); Mean Platelet Volume 7.5 fL (7.4-10.4); Platelet Count 142 thou/uL (130-400); RBC Distribution Width 12.6 % (11.5-14.5); White Blood Cell (WBC) Count 9.6 thou/uL (4.8-10.8)
[2022-03-03 20:36] LABS: ALT (SGPT) 42 U/L (8-55); AST (SGOT) 39 U/L (5-34); Albumin 3.9 g/dL (3.4-4.8); Alkaline Phosphatase 71 U/L (40-110); Anion Gap 11 mmol/L (10-20); BUN (Urea Nitrogen) 21 mg/dL (9.8-20.1); Bilirubin, Total 1.7 mg/dL (0.2-1.2); Calc. Creatinine Clearance 0 mL/min (70-130); Carbon Dioxide 27 mmol/L (23-31); Chloride 97 mmol/L (98-107); Globulin 2.4 g/dL (2.4-3.5); Glucose 103 mg/dL (83-110); Phosphorus 3.4 mg/dL (2.3-4.7); Potassium 4.2 mmol/L (3.5-5.1); Protein, Total 6.3 g/dL (5.8-8.1); Sodium 131 mmol/L (136-145)
[2022-03-03] MEDS ORDERED: Morphine 4 MG/ML VIAL SLOW IVP PRN (20:40)
[2022-03-03] MEDS ORDERED: Ondansetron PF 4 MG/2 ML Vial IVP PRN (20:40)
[2022-03-03] MEDS ORDERED: traMADol HCl 50 MG TAB PO PRN (20:40)
[2022-03-03] MEDS ORDERED: Ondansetron ODT 4 MG TAB PO PRN (20:40)
[2022-03-03] MEDS ORDERED: Morphine 2 MG/ML VIAL SLOW IVP PRN (20:40)
[2022-03-03] MEDS ORDERED: Dextrose 5% in Water 1,000 ML IV PRN (20:40)
[2022-03-03] MEDS ORDERED: Dextrose 50% Abboject 50 ML SYRINGE SLOW IVP PRN (20:40)
[2022-03-03] MEDS: Senokot S 8.6-50 MG TAB PO SCH (22:39)
[2022-03-03] MEDS: Sodium Chloride 0.9% 1,000 ML IV SCH (22:39)
[2022-03-03 23:00] VITALS: BMI 21.2
[2022-03-03] MEDS: Acetaminophen 325 MG TAB PO SCH (23:18)
[2022-03-04] MEDS: Acetaminophen 325 MG TAB PO SCH ×4 (04:15→23:30)
[2022-03-04] MEDS ORDERED: CEFAZOLIN 2 GM in Sodium Chloride 0.9% 100 ML IVPB SCH (07:45)
[2022-03-04] MEDS ORDERED: ceFAZolin 2 GM/Dextrose 50 ML 2 GM in Premix Bag 1 BAG IVPB SCH (07:45)
[2022-03-04] MEDS ORDERED: Morphine 2 MG/ML VIAL SLOW IVP PRN (07:49)
[2022-03-04 08:37] LABS: SARS-CoV-2 NAA Rapid Test Not Detected (NotDetected)
[2022-03-04] MEDS: traMADol HCl 50 MG TAB PO PRN (08:54)
[2022-03-04] MEDS: Carvedilol 3.125 MG TAB PO SCH ×2 (08:54→17:04)
[2022-03-04 11:19] LABS: Troponin I 0.015 ng/mL (< 0.028)
[2022-03-04] MEDS: Sodium Chloride 0.9% 1,000 ML IV SCH (11:26)
[2022-03-04] MEDS: Amiodarone 200 MG TAB PO SCH (11:28)
[2022-03-04] MEDS: Senokot S 8.6-50 MG TAB PO SCH ×2 (11:28→20:02)
[2022-03-04] MEDS: Polyethylene Glycol 3350 17 GM Packet PO SCH (11:28)
[2022-03-04] MEDS: hydrALAZINE 20 MG/ML VIAL SLOW IVP PRN (12:11)
[2022-03-04] MEDS: cycloSPORINE 0.05% Ophthalmic Droperette EA EYE SCH ×2 (12:14→20:02)
[2022-03-04] MEDS ORDERED: CEFAZOLIN 2 GM VIAL ONE (13:42)
[2022-03-04] MEDS ORDERED: Sodium Chloride 0.9% 100 ML ONE (13:43)
[2022-03-04] MEDS: Montelukast Sodium 10 mg Tablet PO SCH (20:04)
[2022-03-05] MEDS: Acetaminophen 325 MG TAB PO SCH ×3 (04:29→17:58)
[2022-03-05] MEDS: Carvedilol 3.125 MG TAB PO SCH ×2 (04:42→17:58)
[2022-03-05 07:23] LABS: #Eosinphils 0.3 thou/uL (0.0-0.7); #Lymphocytes 0.6 thou/uL (1.20-3.40); #Monocytes 0.5 thou/uL (0.11-0.59); #Neutrophils 7.1 thou/uL (1.40-6.50); %Basophils 0.1 % (0.0-1.0); %Eosinophils 3.2 % (0.0-10.0); %Lymphocytes 7.2 % (21.0-51.0); %Monocytes 5.3 % (0.0-10.0); %Neutrophils 84.2 % (42.0-75.0); Hemoglobin 13.2 g/dL (12.0-16.0); Mean Corpuscular HGB CONC 33.1 g/dL (32.0-36.0); Mean Corpuscular Hemoglobin 33.5 pg (27.0-31.0); Platelet Count 133 thou/uL (130-400); RBC Distribution Width 12.7 % (11.5-14.5); Red Blood Cell (RBC) Count 3.94 mill/uL (4.20-5.40); White Blood Cell (WBC) Count 8.4 thou/uL (4.8-10.8)
[2022-03-05 07:41] LABS: Anion Gap 11 mmol/L (10-20); BUN (Urea Nitrogen) 10 mg/dL (9.8-20.1); Calc. Creatinine Clearance 47 mL/min (70-130); Calcium 8.6 mg/dL (7.8-10.44); Carbon Dioxide 26 mmol/L (23-31); Chloride 101 mmol/L (98-107); Glucose 106 mg/dL (83-110); Magnesium 1.9 mg/dL (1.6-2.6); Phosphorus 2.8 mg/dL (2.3-4.7); Potassium 3.8 mmol/L (3.5-5.1); Sodium 134 mmol/L (136-145)
[2022-03-05] MEDS ORDERED: fentaNYL Citrate/PF 100 MCG/2 ML SYRINGE ONE (07:41)
[2022-03-05] MEDS ORDERED: Phenylephrine 10 MG/ML VIAL ONE (07:41)
[2022-03-05] MEDS ORDERED: PHOS-NAK 1 PKT PACK PO SCH (08:00)
[2022-03-05] MEDS ORDERED: Tranexamic Acid 1,000 MG/10 ML VIAL ONE (08:24)
[2022-03-05] MEDS ORDERED: CEFAZOLIN 2 GM VIAL ONE (08:24)
[2022-03-05] MEDS ORDERED: Sodium Chloride 0.9% 100 ML ONE ×2 (08:25→08:33)
[2022-03-05] MEDS ORDERED: Rocuronium Bromide 10 MG/ML (10ML VIAL) ONE (08:45)
[2022-03-05] MEDS ORDERED: PROPOFOL 200 MG/20 ML VIAL ONE (08:45)
[2022-03-05] MEDS ORDERED: Lidocaine 1% PF 5 ML VIAL ONE (08:45)
[2022-03-05] MEDS ORDERED: SUGAMMADEX SODIUM 200 MG/2 ML VIAL ONE (10:17)
[2022-03-05] MEDS ORDERED: Promethazine HCl 25 MG/ML VIAL IVPB PRN (10:56)
[2022-03-05] MEDS ORDERED: Ondansetron HCl/PF 4 MG/2 ML Vial IVP PRN (10:56)
[2022-03-05] MEDS ORDERED: Promethazine HCl 25 MG/ML VIAL IM PRN (10:56)
[2022-03-05] MEDS ORDERED: Fentanyl 100 MCG/2 ML VIAL ONE (11:11)
[2022-03-05] MEDS: Amiodarone 200 MG TAB PO SCH (12:20)
[2022-03-05] MEDS: cycloSPORINE 0.05% Ophthalmic Droperette EA EYE SCH ×2 (13:45→20:45)
[2022-03-05] MEDS: hydrALAZINE 20 MG/ML VIAL SLOW IVP PRN (13:48)
[2022-03-05] MEDS: Senokot S 8.6-50 MG TAB PO SCH ×2 (13:50→20:34)
[2022-03-05] MEDS: Polyethylene Glycol 3350 17 GM Packet PO SCH (13:50)
[2022-03-05] MEDS: CEFAZOLIN 2 GM in Sodium Chloride 0.9% 100 ML IVPB SCH ×2 (13:51→22:28)
[2022-03-05] MEDS: Cyclobenzaprine 10 MG TAB PO PRN (17:58)
[2022-03-05] MEDS ORDERED: Sodium Chloride 0.9% 500 ML IV SCH (19:15)
[2022-03-05] MEDS: Montelukast Sodium 10 mg Tablet PO SCH (20:34)
[2022-03-05] MEDS ORDERED: Lisinopril 5 MG TAB PO SCH (21:00)
[2022-03-05] MEDS ORDERED: ALPRAZolam 0.25 MG TAB PO SCH (21:00)
[2022-03-05] MEDS: Acetaminophen 500 MG TAB PO SCH (23:27)
[2022-03-06] MEDS: Acetaminophen 500 MG TAB PO SCH ×4 (05:28→23:48)
[2022-03-06] MEDS: traMADol HCl 50 MG TAB PO PRN (05:30)
[2022-03-06 05:41] LABS: #Eosinphils 0.1 thou/uL (0.0-0.7); #Lymphocytes 0.9 thou/uL (1.20-3.40); #Monocytes 0.7 thou/uL (0.11-0.59); #Neutrophils 7.7 thou/uL (1.40-6.50); %Basophils 0.1 % (0.0-1.0); %Eosinophils 1.2 % (0.0-10.0); %Neutrophils 81.7 % (42.0-75.0); Hemoglobin 10.7 g/dL (12.0-16.0); Mean Corpuscular HGB CONC 33.9 g/dL (32.0-36.0); Mean Corpuscular Hemoglobin 34.1 pg (27.0-31.0); Mean Platelet Volume 7.6 fL (7.4-10.4); Platelet Count 124 thou/uL (130-400); RBC Distribution Width 12.6 % (11.5-14.5); Red Blood Cell (RBC) Count 3.15 mill/uL (4.20-5.40); White Blood Cell (WBC) Count 9.4 thou/uL (4.8-10.8)
[2022-03-06 06:05] LABS: Anion Gap 9 mmol/L (10-20); BUN (Urea Nitrogen) 9 mg/dL (9.8-20.1); Calc. Creatinine Clearance 48 mL/min (70-130); Calcium 8.4 mg/dL (7.8-10.44); Carbon Dioxide 28 mmol/L (23-31); Chloride 102 mmol/L (98-107); Glucose 105 mg/dL (83-110); Magnesium 1.8 mg/dL (1.6-2.6); Phosphorus 3.1 mg/dL (2.3-4.7); Potassium 3.8 mmol/L (3.5-5.1); Sodium 135 mmol/L (136-145)
[2022-03-06] MEDS ORDERED: ALPRAZolam 0.25 MG TAB PO PRN (07:35)
[2022-03-06] MEDS ORDERED: PHOS-NAK 1 PKT PACK PO SCH (07:45)
[2022-03-06] MEDS ORDERED: Magnesium 2 GM/50 ML(in water) 2 GM in Premix Bag 1 BAG IVPB SCH (07:45)
[2022-03-06] MEDS ORDERED: Potassium Chloride 20 MEQ TAB PO SCH (08:00)
[2022-03-06] MEDS ORDERED: Furosemide 40 MG TAB PO SCH (09:00)
[2022-03-06] MEDS: Senokot S 8.6-50 MG TAB PO SCH ×2 (09:00→20:28)
[2022-03-06] MEDS: Amiodarone 200 MG TAB PO SCH (09:00)
[2022-03-06] MEDS: Carvedilol 3.125 MG TAB PO SCH ×2 (09:00→16:59)
[2022-03-06] MEDS: cycloSPORINE 0.05% Ophthalmic Droperette EA EYE SCH ×2 (09:01→20:30)
[2022-03-06] MEDS: Cyclobenzaprine 10 MG TAB PO PRN (09:01)
[2022-03-06] MEDS: Polyethylene Glycol 3350 17 GM Packet PO SCH (09:01)
[2022-03-06] MEDS: Montelukast Sodium 10 mg Tablet PO SCH (20:27)
[2022-03-06] MEDS ORDERED: Lisinopril 5 MG TAB PO SCH (21:00)
[2022-03-07] MEDS: traMADol HCl 50 MG TAB PO PRN (05:40)
[2022-03-07] MEDS: Acetaminophen 500 MG TAB PO SCH ×2 (05:41→13:36)
[2022-03-07 06:19] LABS: #Eosinphils 0.1 thou/uL (0.0-0.7); #Monocytes 0.8 thou/uL (0.11-0.59); #Neutrophils 9.1 thou/uL (1.40-6.50); %Basophils 0.1 % (0.0-1.0); %Eosinophils 1.1 % (0.0-10.0); %Lymphocytes 9.4 % (21.0-51.0); %Monocytes 7.1 % (0.0-10.0); %Neutrophils 82.2 % (42.0-75.0); Hemoglobin 10.2 g/dL (12.0-16.0); Mean Corpuscular HGB CONC 35.2 g/dL (32.0-36.0); Mean Corpuscular Hemoglobin 34.4 pg (27.0-31.0); Mean Corpuscular Volume 97.7 fL (78.0-98.0); Mean Platelet Volume 7.4 fL (7.4-10.4); Platelet Count 137 thou/uL (130-400); RBC Distribution Width 12.7 % (11.5-14.5); Red Blood Cell (RBC) Count 2.97 mill/uL (4.20-5.40); White Blood Cell (WBC) Count 11.1 thou/uL (4.8-10.8)
[2022-03-07 07:31] LABS: Anion Gap 9 mmol/L (10-20); BUN (Urea Nitrogen) 11 mg/dL (9.8-20.1); Calc. Creatinine Clearance 53 mL/min (70-130); Calcium 8.7 mg/dL (7.8-10.44); Carbon Dioxide 29 mmol/L (23-31); Chloride 101 mmol/L (98-107); Glucose 111 mg/dL (83-110); Phosphorus 1.8 mg/dL (2.3-4.7); Potassium 3.7 mmol/L (3.5-5.1); Sodium 135 mmol/L (136-145)
[2022-03-07] MEDS ORDERED: Sodium Phosphate 30 MMOL in Sodium Chloride 0.9% 250 ML 250 ML IVPB SCH (07:45)
[2022-03-07] MEDS ORDERED: Clopidogrel Bisulfate 75 MG TAB PO SCH (09:00)
[2022-03-07] MEDS ORDERED: Aspirin Chewable 81 MG TAB PO SCH (09:00)
[2022-03-07] MEDS: Amiodarone 200 MG TAB PO SCH (09:13)
[2022-03-07] MEDS: Carvedilol 3.125 MG TAB PO SCH (09:15)
[2022-03-07] MEDS: Polyethylene Glycol 3350 17 GM Packet PO SCH (09:15)
[2022-03-07] MEDS: Senokot S 8.6-50 MG TAB PO SCH (09:15)
[2022-03-07 12:57] VITALS: TEMP 98.4
[2022-03-07] MEDS: cycloSPORINE 0.05% Ophthalmic Droperette EA EYE SCH (13:37)
[2022-03-07 15:54] VITALS: BP 116/57
== END 2022-03-07 15:35 | DRG 522 ==
LOC: ERS 19:04 → T4-A 20:40 → SJJU 03-05 12:32
PROVIDERS: ADMIT Specialist; ATTEND Specialist
PROC: 0SRR019 Replacement of Right Hip Joint, Femoral Surface with Metal Synthetic Substitute, Cemented, Open Approach (ICD-10-PCS; principal; 2022-03-05)
DX: S72.012A Unspecified intracapsular fracture of left femur, initial encounter for closed fracture (principal); E87.1 Hypo-osmolality and hyponatremia; N17.9 Acute kidney failure, unspecified; W18.30XA Fall on same level, unspecified, initial encounter; Z20.822 Contact with and (suspected) exposure to COVID-19; I25.10 Atherosclerotic heart disease of native coronary artery without angina pectoris; E78.5 Hyperlipidemia, unspecified; F32.A Depression, unspecified; S40.021A Contusion of right upper arm, initial encounter; F41.9 Anxiety disorder, unspecified; N18.9 Chronic kidney disease, unspecified; I73.9 Peripheral vascular disease, unspecified; I48.0 Paroxysmal atrial fibrillation; I12.9 Hypertensive chronic kidney disease with stage 1 through stage 4 chronic kidney disease, or unspecified chronic kidney disease; Z96.652 Presence of left artificial knee joint; E89.0 Postprocedural hypothyroidism; Z79.899 Other long term (current) drug therapy; Z79.02 Long term (current) use of antithrombotics/antiplatelets; Y93.89 Activity, other specified; Y92.039 Unspecified place in apartment as the place of occurrence of the external cause; I25.2 Old myocardial infarction; Z95.5 Presence of coronary angioplasty implant and graft; Z86.718 Personal history of other venous thrombosis and embolism; Z79.890 Hormone replacement therapy; Z79.82 Long term (current) use of aspirin; Z87.440 Personal history of urinary (tract) infections; Z90.710 Acquired absence of both cervix and uterus; Z90.89 Acquired absence of other organs
CPT/HCPCS: 36415; 71045; 72170; 80048; 80053; 83735; 84100; 84484; 85025; 86850; 86900; 86901; 93005; 93010; C1713; C1889; G0390; J0360; J2370; J2405; J2704; J3010; J3475; J3490; J7030; J7050; U0002

== ENCOUNTER 2022-04-28 10:21 | Inpatient (IN) | payer MEDICARE, BC ==
[2022-04-28 10:57] LABS: #Lymphocytes 0.5 thou/uL (1.20-3.40); #Monocytes 0.4 thou/uL (0.11-0.59); #Neutrophils 10.3 thou/uL (1.40-6.50); %Eosinophils 0.2 % (0.0-10.0); %Lymphocytes 4.8 % (21.0-51.0); %Monocytes 3.8 % (0.0-10.0); %Neutrophils 91.2 % (42.0-75.0); Mean Corpuscular HGB CONC 34.9 g/dL (32.0-36.0); Mean Corpuscular Hemoglobin 33.5 pg (27.0-31.0); Mean Corpuscular Volume 96.1 fL (78.0-98.0); Mean Platelet Volume 6.7 fL (7.4-10.4); Platelet Count 259 thou/uL (130-400); RBC Distribution Width 12.2 % (11.5-14.5); White Blood Cell (WBC) Count 11.3 thou/uL (4.8-10.8)
[2022-04-28 11:18] LABS: ALT (SGPT) 36 U/L (8-55); AST (SGOT) 38 U/L (5-34); Albumin 3.8 g/dL (3.4-4.8); Alkaline Phosphatase 80 U/L (40-110); Anion Gap 12 mmol/L (10-20); BUN (Urea Nitrogen) 10 mg/dL (9.8-20.1); Bilirubin, Total 1.2 mg/dL (0.2-1.2); Calc. Creatinine Clearance 0 mL/min (70-130); Calcium 9.1 mg/dL (7.8-10.44); Carbon Dioxide 30 mmol/L (23-31); Chloride 82 mmol/L (98-107); Estimated GFR 68; Globulin 2.4 g/dL (2.4-3.5); Glucose 192 mg/dL (83-110); Protein, Total 6.2 g/dL (5.8-8.1); Sodium 121 mmol/L (136-145)
[2022-04-28 11:36] LABS: Potassium 2.9 mmol/L (3.5-5.1)
[2022-04-28] MEDS ORDERED: Potassium Chloride 20 MEQ/100 ML PREMIX BAG ONE (12:29)
[2022-04-28] MEDS ORDERED: Potassium Chloride 20 MEQ TAB ONE (12:29)
[2022-04-28] MEDS ORDERED: Senokot S 8.6-50 MG TAB PO PRN (14:15)
[2022-04-28] MEDS ORDERED: Ondansetron ODT 4 MG TAB PO PRN (14:15)
[2022-04-28] MEDS ORDERED: Ondansetron PF 4 MG/2 ML Vial IVP PRN (14:15)
[2022-04-28] MEDS ORDERED: Sodium Chloride 0.9% 1,000 ML IV SCH (14:15)
[2022-04-28 14:55] LABS: Hemoglobin A1c 5.1 % (4.0-6.0)
[2022-04-28 15:01] LABS: Anion Gap 12 mmol/L (10-20); BUN (Urea Nitrogen) 9 mg/dL (9.8-20.1); Calc. Creatinine Clearance 0 mL/min (70-130); Calcium 9.1 mg/dL (7.8-10.44); Carbon Dioxide 29 mmol/L (23-31); Chloride 83 mmol/L (98-107); Estimated GFR 83; Glucose 103 mg/dL (83-110); Magnesium 1.7 mg/dL (1.6-2.6); Potassium 3.4 mmol/L (3.5-5.1); Sodium 121 mmol/L (136-145)
[2022-04-28] MEDS ORDERED: Sodium Chloride 1 GM TAB PO SCH ×3 (16:00→21:00)
[2022-04-28] MEDS ORDERED: Potassium Chloride 20 MEQ TAB PO SCH (16:00)
[2022-04-28] MEDS ORDERED: Magnesium 2 GM/50 ML(in water) 2 GM in Premix Bag 1 BAG IVPB SCH (16:00)
[2022-04-28 17:56] LABS: Anion Gap 13 mmol/L (10-20); BUN (Urea Nitrogen) 8 mg/dL (9.8-20.1); Calc. Creatinine Clearance 0 mL/min (70-130); Calcium 9.1 mg/dL (7.8-10.44); Carbon Dioxide 26 mmol/L (23-31); Chloride 87 mmol/L (98-107); Estimated GFR 86; Glucose 103 mg/dL (83-110); Potassium 3.6 mmol/L (3.5-5.1); Sodium 122 mmol/L (136-145)
[2022-04-28 19:27] LABS: SARS-CoV-2 NAA Rapid Test Not Detected (NotDetected)
[2022-04-28 19:47] LABS: Bacteria/HPF None Seen HPF (None Seen); Bilirubin Negative (Negative); Blood, Urine Trace (Negative); Clarity Clear (Clear); Glucose, Urine (Dipstick) Normal (Negative); Ketone, Urine Negative (Negative); Leukocyte Negative Leu/uL (Negative); Nitrite Negative (Negative); Protein, Urine (Dipstick) Negative (Neg-Trace); RBC/HPF 0-3 HPF (0-3); Specific Gravity, Urine 1.003 (1.002-1.036); Squamous Epithelial None Seen HPF (0-3); Urobilinogen Normal mg/dL (Less than 2); WBC/HPF 0-3 HPF (0-3)
[2022-04-28 20:15] LABS: Anion Gap 13 mmol/L (10-20); BUN (Urea Nitrogen) 9 mg/dL (9.8-20.1); Calc. Creatinine Clearance 50 mL/min (70-130); Calcium 9.1 mg/dL (7.8-10.44); Carbon Dioxide 26 mmol/L (23-31); Chloride 89 mmol/L (98-107); Estimated GFR 75; Glucose 187 mg/dL (83-110); Potassium 3.5 mmol/L (3.5-5.1); Sodium 124 mmol/L (136-145)
[2022-04-28] MEDS ORDERED: Desmopressin 0.2 mg Tablet PO SCH (21:00)
[2022-04-28] MEDS: Atorvastatin Calcium 40 MG TAB PO SCH (21:55)
[2022-04-28] MEDS: Benzonatate 100 MG CAP PO PRN (22:34)
[2022-04-29 00:48] LABS: Anion Gap 12 mmol/L (10-20); BUN (Urea Nitrogen) 10 mg/dL (9.8-20.1); Calc. Creatinine Clearance 55 mL/min (70-130); Calcium 9.1 mg/dL (7.8-10.44); Carbon Dioxide 27 mmol/L (23-31); Chloride 95 mmol/L (98-107); Estimated GFR 84; Glucose 98 mg/dL (83-110); Potassium 4.1 mmol/L (3.5-5.1); Sodium 130 mmol/L (136-145)
[2022-04-29 04:26] LABS: #Lymphocytes 1.2 thou/uL (1.20-3.40); #Monocytes 0.6 thou/uL (0.11-0.59); #Neutrophils 4.4 thou/uL (1.40-6.50); %Basophils 0.4 % (0.0-1.0); %Eosinophils 0.7 % (0.0-10.0); %Lymphocytes 18.7 % (21.0-51.0); %Monocytes 9.9 % (0.0-10.0); %Neutrophils 70.2 % (42.0-75.0); Hemoglobin 12.7 g/dL (12.0-16.0); Mean Corpuscular HGB CONC 35.1 g/dL (32.0-36.0); Mean Corpuscular Hemoglobin 34.1 pg (27.0-31.0); Mean Corpuscular Volume 97.3 fL (78.0-98.0); Mean Platelet Volume 6.9 fL (7.4-10.4); Platelet Count 274 thou/uL (130-400); RBC Distribution Width 12.3 % (11.5-14.5); Red Blood Cell (RBC) Count 3.74 mill/uL (4.20-5.40); White Blood Cell (WBC) Count 6.2 thou/uL (4.8-10.8)
[2022-04-29 04:34] LABS: Anion Gap 13 mmol/L (10-20); BUN (Urea Nitrogen) 9 mg/dL (9.8-20.1); Calc. Creatinine Clearance 52 mL/min (70-130); Calcium 9.3 mg/dL (7.8-10.44); Carbon Dioxide 29 mmol/L (23-31); Chloride 95 mmol/L (98-107); Estimated GFR 79; Glucose 100 mg/dL (83-110); Potassium 4.2 mmol/L (3.5-5.1); Sodium 133 mmol/L (136-145)
[2022-04-29 06:08] LABS: Anion Gap 13 mmol/L (10-20); BUN (Urea Nitrogen) 8 mg/dL (9.8-20.1); Calc. Creatinine Clearance 56 mL/min (70-130); Calcium 9.2 mg/dL (7.8-10.44); Carbon Dioxide 27 mmol/L (23-31); Chloride 96 mmol/L (98-107); Estimated GFR 84; Glucose 103 mg/dL (83-110); Sodium 132 mmol/L (136-145)
[2022-04-29] MEDS ORDERED: Dextrose 5% in Water 1,000 ML IV SCH (06:15)
[2022-04-29] MEDS: Levothyroxine Sodium 100 MCG TAB PO SCH (06:51)
[2022-04-29] MEDS: hydrALAZINE 20 MG/ML VIAL SLOW IVP PRN (09:38)
[2022-04-29] MEDS: Acetaminophen 325 MG TAB PO PRN ×2 (09:52→18:41)
[2022-04-29] MEDS: Benzonatate 100 MG CAP PO PRN ×2 (09:58→18:41)
[2022-04-29 10:34] LABS: Anion Gap 14 mmol/L (10-20); BUN (Urea Nitrogen) 9 mg/dL (9.8-20.1); Calc. Creatinine Clearance 47 mL/min (70-130); Calcium 9.2 mg/dL (7.8-10.44); Carbon Dioxide 24 mmol/L (23-31); Chloride 97 mmol/L (98-107); Estimated GFR 77; Glucose 150 mg/dL (83-110); Potassium 3.7 mmol/L (3.5-5.1); Sodium 131 mmol/L (136-145)
[2022-04-29 14:03] VITALS: BMI 18.9
[2022-04-29 14:18] LABS: Anion Gap 10 mmol/L (10-20); BUN (Urea Nitrogen) 13 mg/dL (9.8-20.1); Calc. Creatinine Clearance 42 mL/min (70-130); Carbon Dioxide 26 mmol/L (23-31); Chloride 96 mmol/L (98-107); Estimated GFR 68; Glucose 143 mg/dL (83-110); Potassium 3.4 mmol/L (3.5-5.1); Sodium 129 mmol/L (136-145)
[2022-04-29] MEDS ORDERED: Potassium Chloride 20 MEQ TAB PO SCH (16:00)
[2022-04-29 21:06] LABS: Anion Gap 13 mmol/L (10-20); BUN (Urea Nitrogen) 15 mg/dL (9.8-20.1); Calc. Creatinine Clearance 45 mL/min (70-130); Calcium 8.9 mg/dL (7.8-10.44); Carbon Dioxide 26 mmol/L (23-31); Chloride 94 mmol/L (98-107); Estimated GFR 74; Glucose 86 mg/dL (83-110); Magnesium 2.1 mg/dL (1.6-2.6); Potassium 3.8 mmol/L (3.5-5.1); Sodium 129 mmol/L (136-145)
[2022-04-29] MEDS: Atorvastatin Calcium 40 MG TAB PO SCH (21:35)
[2022-04-30] MEDS: Acetaminophen 325 MG TAB PO PRN ×2 (03:50→20:02)
[2022-04-30 04:12] LABS: #Basophils 0.1 thou/uL (0.0-0.2); #Eosinphils 0.1 thou/uL (0.0-0.7); #Lymphocytes 1.3 thou/uL (1.20-3.40); #Monocytes 0.7 thou/uL (0.11-0.59); #Neutrophils 4.8 thou/uL (1.40-6.50); %Basophils 0.8 % (0.0-1.0); %Eosinophils 1.8 % (0.0-10.0); %Lymphocytes 18.2 % (21.0-51.0); %Monocytes 9.8 % (0.0-10.0); %Neutrophils 69.4 % (42.0-75.0); Hemoglobin 11.8 g/dL (12.0-16.0); Mean Corpuscular HGB CONC 34.1 g/dL (32.0-36.0); Mean Corpuscular Hemoglobin 33.5 pg (27.0-31.0); Mean Corpuscular Volume 98.5 fL (78.0-98.0); Mean Platelet Volume 6.8 fL (7.4-10.4); Platelet Count 263 thou/uL (130-400); RBC Distribution Width 12.6 % (11.5-14.5); Red Blood Cell (RBC) Count 3.52 mill/uL (4.20-5.40); White Blood Cell (WBC) Count 6.9 thou/uL (4.8-10.8)
[2022-04-30 04:35] LABS: Anion Gap 11 mmol/L (10-20); BUN (Urea Nitrogen) 11 mg/dL (9.8-20.1); Calc. Creatinine Clearance 51 mL/min (70-130); Calcium 9.2 mg/dL (7.8-10.44); Carbon Dioxide 28 mmol/L (23-31); Chloride 98 mmol/L (98-107); Estimated GFR 84; Glucose 107 mg/dL (83-110); Magnesium 2.1 mg/dL (1.6-2.6); Potassium 4.3 mmol/L (3.5-5.1); Sodium 133 mmol/L (136-145)
[2022-04-30] MEDS: Levothyroxine Sodium 100 MCG TAB PO SCH (06:30)
[2022-04-30] MEDS: hydrALAZINE 20 MG/ML VIAL SLOW IVP PRN ×2 (06:37→20:13)
[2022-04-30] MEDS: Atorvastatin Calcium 40 MG TAB PO SCH (20:02)
[2022-04-30] MEDS ORDERED: Lidocaine 5% Patch TD SCH (20:02)
[2022-04-30] MEDS: Heparin 5,000 UNITS/ML VIAL SC SCH (20:02)
[2022-05-01] MEDS: Benzonatate 100 MG CAP PO PRN (03:21)
[2022-05-01] MEDS: Levothyroxine Sodium 100 MCG TAB PO SCH (05:53)
[2022-05-01] MEDS ORDERED: Calcium Carbonate 600 MG + Vit D TAB PO SCH (09:00)
[2022-05-01] MEDS ORDERED: Amiodarone 200 MG TAB PO SCH (09:00)
[2022-05-01] MEDS ORDERED: Metoprolol Tartrate 25 MG TAB PO SCH (09:00)
[2022-05-01] MEDS ORDERED: FLAXSEED PO SCH (09:00)
[2022-05-01] MEDS ORDERED: Non-Formulary Item 1 EACH (Multivitamin [Multiple Vitamins] 1 EACH Tablet) PO SCH (09:00)
[2022-05-01] MEDS ORDERED: Clopidogrel Bisulfate 75 MG TAB PO SCH (09:00)
[2022-05-01] MEDS ORDERED: OMEGA3 PO SCH (09:00)
[2022-05-01] MEDS ORDERED: FATTY ACID PO SCH (09:00)
[2022-05-01] MEDS ORDERED: FLAX SEED OIL DT SCH (09:00)
[2022-05-01] MEDS ORDERED: [UNRECOGNIZED DRUG - OTHER] PO SCH (09:00)
[2022-05-01] MEDS ORDERED: Lisinopril 10 MG TAB PO SCH (09:00)
[2022-05-01] MEDS ORDERED: Aspirin 81 mg Enteric Coated Tablet PO SCH (09:00)
[2022-05-01] MEDS ORDERED: Lidocaine 5% Patch TD SCH (09:00)
[2022-05-01] MEDS ORDERED: Non-Formulary Item 1 EACH (Calcium Carb/Vitamin D3/Vit K1 [Calcium + D Soft Chewable Tabl PO SCH (09:00)
[2022-05-01] MEDS ORDERED: Multivit, Therapeutic 1 TAB PO SCH (09:00)
[2022-05-01] MEDS: Heparin 5,000 UNITS/ML VIAL SC SCH (09:54)
[2022-05-01] MEDS: Acetaminophen 325 MG TAB PO PRN (09:56)
[2022-05-01 10:09] LABS: Anion Gap 13 mmol/L (10-20); BUN (Urea Nitrogen) 11 mg/dL (9.8-20.1); Calc. Creatinine Clearance 48 mL/min (70-130); Calcium 9.4 mg/dL (7.8-10.44); Carbon Dioxide 26 mmol/L (23-31); Chloride 100 mmol/L (98-107); Estimated GFR 74; Glucose 135 mg/dL (83-110); Potassium 3.5 mmol/L (3.5-5.1); Sodium 135 mmol/L (136-145)
[2022-05-01 16:22] VITALS: BP 113/51; TEMP 97
[2022-05-01] MEDS ORDERED: Transdermal Patch Removal TOP SCH (21:00)
== END 2022-05-01 16:55 | DRG 644 ==
LOC: ERS 10:21 → 2NO 12:44
PROVIDERS: ADMIT Hospitalist; ATTEND Hospitalist
DX: E22.2 Syndrome of inappropriate secretion of antidiuretic hormone (principal); S22.32XA Fracture of one rib, left side, initial encounter for closed fracture; I48.20 Chronic atrial fibrillation, unspecified; I50.32 Chronic diastolic (congestive) heart failure; G93.49 Other encephalopathy; N39.0 Urinary tract infection, site not specified; Z66 Do not resuscitate; Z20.822 Contact with and (suspected) exposure to COVID-19; E03.9 Hypothyroidism, unspecified; E78.5 Hyperlipidemia, unspecified; R73.9 Hyperglycemia, unspecified; D72.829 Elevated white blood cell count, unspecified; I11.0 Hypertensive heart disease with heart failure; T38.895A Adverse effect of other hormones and synthetic substitutes, initial encounter; I34.0 Nonrheumatic mitral (valve) insufficiency; K21.9 Gastro-esophageal reflux disease without esophagitis; I25.10 Atherosclerotic heart disease of native coronary artery without angina pectoris; R29.6 Repeated falls; Z96.641 Presence of right artificial hip joint; Z96.652 Presence of left artificial knee joint; E87.6 Hypokalemia; W18.30XA Fall on same level, unspecified, initial encounter; Y92.009 Unspecified place in unspecified non-institutional (private) residence as the place of occurrence of the external cause; Z79.899 Other long term (current) drug therapy; Z79.82 Long term (current) use of aspirin; Z79.02 Long term (current) use of antithrombotics/antiplatelets; Z79.890 Hormone replacement therapy; Z88.1 Allergy status to other antibiotic agents; Z91.81 History of falling; Z82.49 Family history of ischemic heart disease and other diseases of the circulatory system; Z83.49 Family history of other endocrine, nutritional and metabolic diseases; N39.41 Urge incontinence; R35.0 Frequency of micturition
CPT/HCPCS: 36415; 70450; 72125; 80048; 80053; 81001; 83036; 83735; 83930; 83935; 84300; 85025; 87086; 93005; 96365; 96366; J0360; J1644; J3475; J3480; J7070; U0002

== ENCOUNTER 2022-10-29 18:53 | Inpatient (IN) | payer MEDICARE, BC ==
[2022-10-29 19:28] LABS: #Basophils 0.1 thou/uL (0.0-0.2); #Eosinphils 0.1 thou/uL (0.0-0.7); #Lymphocytes 1.7 thou/uL (1.20-3.40); #Monocytes 0.4 thou/uL (0.11-0.59); #Neutrophils 5.7 thou/uL (1.40-6.50); %Basophils 0.6 % (0.0-1.0); %Lymphocytes 21.7 % (21.0-51.0); %Monocytes 5.3 % (0.0-10.0); %Neutrophils 71.4 % (42.0-75.0); Hemoglobin 13.6 g/dL (12.0-16.0); Mean Corpuscular HGB CONC 34.4 g/dL (32.0-36.0); Mean Corpuscular Hemoglobin 34.3 pg (27.0-31.0); Mean Corpuscular Volume 99.7 fl (78.0-98.0); Mean Platelet Volume 7.9 fL (7.4-10.4); Platelet Count 217 10x3/uL (130-400); RBC Distribution Width 11.8 % (11.5-14.5); Red Blood Cell (RBC) Count 3.97 mill/uL (4.20-5.40)
[2022-10-29 19:51] LABS: ALT (SGPT) 14 U/L (8-55); AST (SGOT) 21 U/L (5-34); Albumin 4.2 g/dL (3.4-4.8); Alkaline Phosphatase 78 U/L (40-110); Anion Gap 15 mmol/L (10-20); BUN (Urea Nitrogen) 22 mg/dL (9.8-20.1); Bilirubin, Total 0.7 mg/dL (0.2-1.2); Calc. Creatinine Clearance 0 mL/min (70-130); Calcium 9.4 mg/dL (7.8-10.44); Carbon Dioxide 24 mmol/L (23-31); Chloride 103 mmol/L (98-107); Estimated GFR 54; Globulin 2.8 g/dL (2.4-3.5); Glucose 126 mg/dL (83-110); Lipase 41 U/L (8-78); Potassium 3.8 mmol/L (3.5-5.1); Sodium 138 mmol/L (136-145)
[2022-10-29] MEDS ORDERED: Ondansetron PF 4 MG/2 ML Vial IVP PRN (22:29)
[2022-10-29] MEDS ORDERED: Acetaminophen 325 MG TAB PO PRN (22:29)
[2022-10-29 22:37] LABS: Bacteria/HPF None Seen HPF (None Seen); Bilirubin Negative (Negative); Blood, Urine Negative (Negative); Clarity Clear (Clear); Glucose, Urine (Dipstick) Normal (Negative); Ketone, Urine Negative (Negative); Leukocyte 25 Leu/uL (Negative); Nitrite Negative (Negative); Protein, Urine (Dipstick) Negative (Neg-Trace); RBC/HPF 0-3 HPF (0-3); Specific Gravity, Urine 1.008 (1.002-1.036); Squamous Epithelial 0-3 HPF (0-3); Urobilinogen Normal mg/dL (Less than 2)
[2022-10-29] MEDS ORDERED: Lisinopril 5 MG TAB PO SCH (23:30)
[2022-10-30] MEDS ORDERED: Montelukast Sodium 10 mg Tablet PO PRN (00:26)
[2022-10-30 00:47] LABS: Troponin I Less than 0.010 ng/mL (< 0.028)
[2022-10-30 01:40] LABS: Troponin I Less than 0.010 ng/mL (< 0.028)
[2022-10-30 01:47] VITALS: BMI 25.2
[2022-10-30 05:18] LABS: #Eosinphils 0.1 thou/uL (0.0-0.7); #Monocytes 0.5 thou/uL (0.11-0.59); #Neutrophils 4.7 thou/uL (1.40-6.50); %Basophils 0.5 % (0.0-1.0); %Eosinophils 1.3 % (0.0-10.0); %Lymphocytes 27.1 % (21.0-51.0); %Monocytes 7.1 % (0.0-10.0); Hemoglobin 13.3 g/dL (12.0-16.0); Mean Corpuscular HGB CONC 33.5 g/dL (32.0-36.0); Mean Corpuscular Hemoglobin 33.7 pg (27.0-31.0); Mean Platelet Volume 8.3 fL (7.4-10.4); Platelet Count 195 10x3/uL (130-400); RBC Distribution Width 11.8 % (11.5-14.5); Red Blood Cell (RBC) Count 3.95 mill/uL (4.20-5.40); White Blood Cell (WBC) Count 7.4 10x3/uL (4.8-10.8)
[2022-10-30] MEDS: Levothyroxine Sodium 125 MCG TAB PO SCH ×2 (06:07→06:12)
[2022-10-30 07:32] LABS: Chloride 107 mmol/L (98-107); Potassium 3.6 mmol/L (3.5-5.1); Sodium 139 mmol/L (136-145)
[2022-10-30 07:33] LABS: Glucose 124 mg/dL (83-110)
[2022-10-30 07:35] LABS: Anion Gap 13 mmol/L (10-20); Carbon Dioxide 23 mmol/L (23-31)
[2022-10-30 07:37] LABS: Calc. Creatinine Clearance 54 mL/min (70-130); Estimated GFR 64
[2022-10-30 07:38] LABS: BUN (Urea Nitrogen) 16 mg/dL (9.8-20.1)
[2022-10-30 07:39] LABS: Magnesium 2.1 mg/dL (1.6-2.6)
[2022-10-30] MEDS: Lisinopril 5 MG TAB PO SCH ×2 (09:54→20:51)
[2022-10-30] MEDS: Escitalopram Oxalate 10 mg Tablet PO SCH (09:54)
[2022-10-30] MEDS: Calcium Carbonate 600 MG + Vit D TAB PO SCH (09:54)
[2022-10-30] MEDS: Clopidogrel Bisulfate 75 MG TAB PO SCH (09:54)
[2022-10-30] MEDS: cycloSPORINE 0.05% Ophthalmic Droperette R EYE SCH ×3 (09:56→20:51)
[2022-10-31] MEDS: Levothyroxine Sodium 125 MCG TAB PO SCH (05:00)
[2022-10-31 05:07] LABS: #Basophils 0.1 thou/uL (0.0-0.2); #Eosinphils 0.1 thou/uL (0.0-0.7); #Lymphocytes 1.8 thou/uL (1.20-3.40); #Monocytes 0.5 thou/uL (0.11-0.59); #Neutrophils 4.2 thou/uL (1.40-6.50); %Basophils 0.8 % (0.0-1.0); %Eosinophils 1.9 % (0.0-10.0); %Lymphocytes 27.4 % (21.0-51.0); %Neutrophils 62.9 % (42.0-75.0); Hemoglobin 13.1 g/dL (12.0-16.0); Mean Corpuscular HGB CONC 33.6 g/dL (32.0-36.0); Mean Corpuscular Hemoglobin 33.5 pg (27.0-31.0); Mean Corpuscular Volume 99.6 fl (78.0-98.0); Mean Platelet Volume 7.9 fL (7.4-10.4); Platelet Count 197 10x3/uL (130-400); RBC Distribution Width 11.7 % (11.5-14.5); Red Blood Cell (RBC) Count 3.91 mill/uL (4.20-5.40); White Blood Cell (WBC) Count 6.7 10x3/uL (4.8-10.8)
[2022-10-31 05:39] LABS: Anion Gap 12 mmol/L (10-20); BUN (Urea Nitrogen) 17 mg/dL (9.8-20.1); Calc. Creatinine Clearance 52 mL/min (70-130); Calcium 9.1 mg/dL (7.8-10.44); Carbon Dioxide 25 mmol/L (23-31); Chloride 109 mmol/L (98-107); Estimated GFR 62; Glucose 92 mg/dL (83-110); Magnesium 2.1 mg/dL (1.6-2.6); Potassium 3.7 mmol/L (3.5-5.1); Sodium 142 mmol/L (136-145)
[2022-10-31 08:31] VITALS: TEMP 97.7
[2022-10-31] MEDS: Clopidogrel Bisulfate 75 MG TAB PO SCH (08:32)
[2022-10-31] MEDS: Calcium Carbonate 600 MG + Vit D TAB PO SCH (08:32)
[2022-10-31] MEDS: Lisinopril 5 MG TAB PO SCH (08:32)
[2022-10-31] MEDS: Escitalopram Oxalate 10 mg Tablet PO SCH (08:33)
[2022-10-31] MEDS: cycloSPORINE 0.05% Ophthalmic Droperette R EYE SCH (09:09)
[2022-10-31 11:32] VITALS: BP 120/53
== END 2022-10-31 11:08 | disposition home or self-care (01) | DRG 149 ==
LOC: ERS 18:53 → 2SW 20:50 → OBSVTOIN 10-31 10:28
PROVIDERS: ADMIT Internal Medicine; ATTEND Internal Medicine
DX: R42 Dizziness and giddiness (principal); I13.0 Hypertensive heart and chronic kidney disease with heart failure and stage 1 through stage 4 chronic kidney disease, or unspecified chronic kidney disease; Z66 Do not resuscitate; I50.32 Chronic diastolic (congestive) heart failure; R00.1 Bradycardia, unspecified; E78.5 Hyperlipidemia, unspecified; I25.10 Atherosclerotic heart disease of native coronary artery without angina pectoris; E03.9 Hypothyroidism, unspecified; K21.9 Gastro-esophageal reflux disease without esophagitis; I48.0 Paroxysmal atrial fibrillation; I73.9 Peripheral vascular disease, unspecified; N18.2 Chronic kidney disease, stage 2 (mild); E86.0 Dehydration; Z96.652 Presence of left artificial knee joint; Z96.641 Presence of right artificial hip joint; Z86.718 Personal history of other venous thrombosis and embolism; Z79.01 Long term (current) use of anticoagulants; Z88.1 Allergy status to other antibiotic agents; Z95.5 Presence of coronary angioplasty implant and graft
CPT/HCPCS: 36415; 70450; 70551; 71045; 80048; 80053; 81003; 81015; 83605; 83690; 83735; 84439; 84443; 84484; 85025; 93005; 93306; U0003; U0005

== ENCOUNTER 2024-06-19 17:16 | Inpatient (IN) | payer MEDICARE, BC ==
[2024-06-19 18:39] LABS: #Basophils 0.03 10x3/uL (0.0-0.2); %Basophils 0.3 % (0.0-1.0); %Eosinophils 0.3 % (0.0-10.0); %Lymphocytes 20.6 % (21.0-51.0); %Monocytes 8.8 % (0.0-10.0); %Neutrophils 69.7 % (42.0-75.0); Hematocrit 35.6 % (36.0-47.0); Hemoglobin 12.8 g/dL (12.0-16.0); Mean Corpuscular Hemoglobin 31.8 pg (27.0-31.0); Mean Corpuscular Volume 88.3 fL (78.0-98.0); Platelet Count 308 10x3/uL (130-400); RBC Distribution Width 12.6 % (11.5-14.5); Red Blood Cell (RBC) Count 4.03 mill/uL (4.20-5.40)
[2024-06-19 18:53] LABS: ALT (SGPT) 15 U/L (8-55); AST (SGOT) 26 U/L (5-34); Albumin 3.7 g/dL (3.4-4.8); Alkaline Phosphatase 140 U/L (40-110); Anion Gap 15 mmol/L (10-20); BUN (Urea Nitrogen) 18 mg/dL (9.8-20.1); Bilirubin, Total 0.9 mg/dL (0.2-1.2); Calc. Creatinine Clearance 0 mL/min (70-130); Calcium 9.9 mg/dL (7.8-10.44); Carbon Dioxide 27 mmol/L (23-31); Chloride 93 mmol/L (98-107); Estimated GFR 34; Globulin 3.5 g/dL (2.4-3.5); Glucose 97 mg/dL (83-110); Lipase 37 U/L (8-78); Potassium 3.2 mmol/L (3.5-5.1); Protein, Total 7.2 g/dL (5.8-8.1); Sodium 132 mmol/L (136-145)
[2024-06-19 20:13] LABS: Bacteria/HPF None Seen HPF (None Seen); Bilirubin Negative (Negative); Blood, Urine Negative (Negative); CAUTI Indications for Culture Alt mental st,lethar; Clarity Clear (Clear); Glucose, Urine (Dipstick) Normal (Negative); Ketone, Urine Negative (Negative); Leukocyte 250 Leu/uL (Negative); Nitrite Negative (Negative); Protein, Urine (Dipstick) Negative (Neg-Trace); RBC/HPF 0-3 HPF (0-3); Squamous Epithelial 0-3 HPF (0-3); Urobilinogen Normal mg/dL (Less than 2); WBC/HPF 0-3 HPF (0-3)
[2024-06-19 20:24] LABS: Urine Culture Reflex No No
[2024-06-19] MEDS ORDERED: cefTRIAXone (ROCEPHIN) 1 GM VIAL ONE (20:41)
[2024-06-19] MEDS ORDERED: Sodium Chloride 0.9% 100 ML ONE (20:41)
[2024-06-19] MEDS: Potassium Chloride 20 MEQ TAB PO SCH (22:50)
[2024-06-19] MEDS: Acetaminophen 325 MG TAB PO PRN (22:52)
[2024-06-19 23:43] VITALS: BMI 22.6
[2024-06-20] MEDS ORDERED: Melatonin 3 MG TAB PO PRN (02:58)
[2024-06-20] MEDS: Melatonin 3 MG TAB PO PRN (03:10)
[2024-06-20] MEDS: Levothyroxine Sodium 125 MCG TAB PO SCH (06:12)
[2024-06-20 06:53] LABS: #Basophils 0.04 10x3/uL (0.0-0.2); #Eosinphils Less than 0.03 10x3/uL (0.0-0.7); %Basophils 0.4 % (0.0-1.0); %Eosinophils 0.2 % (0.0-10.0); %Lymphocytes 11.1 % (21.0-51.0); %Monocytes 6.8 % (0.0-10.0); %Neutrophils 81.1 % (42.0-75.0); Hematocrit 37.2 % (36.0-47.0); Hemoglobin 13.3 g/dL (12.0-16.0); Mean Corpuscular HGB CONC 35.8 g/dL (32.0-36.0); Mean Corpuscular Hemoglobin 31.5 pg (27.0-31.0); Mean Corpuscular Volume 88.2 fL (78.0-98.0); Mean Platelet Volume 9.1 fL (7.4-10.4); Platelet Count 299 10x3/uL (130-400); RBC Distribution Width 12.7 % (11.5-14.5); Red Blood Cell (RBC) Count 4.22 mill/uL (4.20-5.40)
[2024-06-20 07:25] LABS: Anion Gap 13 mmol/L (10-20); BUN (Urea Nitrogen) 15 mg/dL (9.8-20.1); Calc. Creatinine Clearance 35 mL/min (70-130); Calcium 9.5 mg/dL (7.8-10.44); Carbon Dioxide 25 mmol/L (23-31); Chloride 99 mmol/L (98-107); Estimated GFR 45; Glucose 125 mg/dL (83-110); Magnesium 2.1 mg/dL (1.6-2.6); Potassium 3.1 mmol/L (3.5-5.1); Sodium 134 mmol/L (136-145)
[2024-06-20] MEDS: Multivitamin W/ Minerals 1 TAB PO SCH (08:29)
[2024-06-20] MEDS: Amiodarone 200 MG TAB PO SCH (08:29)
[2024-06-20] MEDS: Amlodipine 5 MG TAB PO SCH (08:30)
[2024-06-20] MEDS: Pantoprazole DR 40 MG TAB PO SCH (08:30)
[2024-06-20] MEDS: Clopidogrel Bisulfate 75 MG TAB PO SCH (08:30)
[2024-06-20] MEDS: Ondansetron PF 4 MG/2 ML Vial IVP PRN (08:57)
[2024-06-20 13:35] VITALS: BMI 22.6
[2024-06-20] MEDS: Escitalopram Oxalate 10 mg Tablet PO SCH ×2 (17:21→18:03)
[2024-06-20] MEDS ORDERED: Escitalopram Oxalate 10 mg Tablet PO SCH (17:39)
[2024-06-20] MEDS: Atorvastatin Calcium 40 MG TAB PO SCH (20:39)
[2024-06-20] MEDS: cefTRIAXone\\ROCEPHIN 1 GM in Sodium Chloride 0.9% 100 ML IVPB SCH (20:40)
[2024-06-21 04:26] LABS: #Basophils 0.04 10x3/uL (0.0-0.2); %Basophils 0.4 % (0.0-1.0); %Eosinophils 0.6 % (0.0-10.0); %Lymphocytes 11.8 % (21.0-51.0); %Neutrophils 79.5 % (42.0-75.0); Hematocrit 34.7 % (36.0-47.0); Hemoglobin 12.1 g/dL (12.0-16.0); Mean Corpuscular HGB CONC 34.9 g/dL (32.0-36.0); Mean Corpuscular Hemoglobin 32.3 pg (27.0-31.0); Mean Corpuscular Volume 92.5 fL (78.0-98.0); Mean Platelet Volume 9.2 fL (7.4-10.4); Platelet Count 299 10x3/uL (130-400); RBC Distribution Width 12.8 % (11.5-14.5); Red Blood Cell (RBC) Count 3.75 mill/uL (4.20-5.40)
[2024-06-21 04:44] LABS: Anion Gap 13 mmol/L (10-20); BUN (Urea Nitrogen) 13 mg/dL (9.8-20.1); Calc. Creatinine Clearance 36 mL/min (70-130); Calcium 9.5 mg/dL (7.8-10.44); Carbon Dioxide 26 mmol/L (23-31); Chloride 98 mmol/L (98-107); Estimated GFR 45; Glucose 116 mg/dL (83-110); Magnesium 2.1 mg/dL (1.6-2.6); Potassium 2.9 mmol/L (3.5-5.1); Sodium 134 mmol/L (136-145)
[2024-06-21] MEDS: Escitalopram Oxalate 10 mg Tablet PO SCH (08:12)
[2024-06-21] MEDS: Potassium Chloride 20 MEQ TAB PO SCH (08:40)
[2024-06-21] MEDS: HYDROcodone/Acetaminophen 5/325 mg Tablet PO PRN (12:41)
[2024-06-22 04:50] LABS: #Basophils 0.05 10x3/uL (0.0-0.2); %Basophils 0.5 % (0.0-1.0); %Eosinophils 1.1 % (0.0-10.0); %Lymphocytes 11.2 % (21.0-51.0); %Monocytes 7.3 % (0.0-10.0); %Neutrophils 79.1 % (42.0-75.0); Hematocrit 37.3 % (36.0-47.0); Mean Corpuscular HGB CONC 34.9 g/dL (32.0-36.0); Mean Corpuscular Hemoglobin 31.3 pg (27.0-31.0); Mean Corpuscular Volume 89.9 fL (78.0-98.0); Mean Platelet Volume 9.2 fL (7.4-10.4); Platelet Count 288 10x3/uL (130-400); RBC Distribution Width 12.7 % (11.5-14.5); Red Blood Cell (RBC) Count 4.15 mill/uL (4.20-5.40)
[2024-06-22 05:49] LABS: Anion Gap 16 mmol/L (10-20); BUN (Urea Nitrogen) 13 mg/dL (9.8-20.1); Calc. Creatinine Clearance 43 mL/min (70-130); Calcium 9.6 mg/dL (7.8-10.44); Carbon Dioxide 23 mmol/L (23-31); Chloride 100 mmol/L (98-107); Estimated GFR 57; Glucose 106 mg/dL (83-110); Potassium 3.8 mmol/L (3.5-5.1); Sodium 135 mmol/L (136-145)
[2024-06-22 08:40] VITALS: BP 150/71; TEMP 97.8
== END 2024-06-22 13:31 | disposition home or self-care (01) | DRG 690 ==
LOC: ERS 17:16 → INTOOBSV 21:27 → T4-B 21:27 → OBSVTOIN 06-20 16:28
PROVIDERS: ADMIT Internal Medicine; ATTEND Hospitalist
DX: N10 Acute pyelonephritis (principal); N28.0 Ischemia and infarction of kidney; I13.0 Hypertensive heart and chronic kidney disease with heart failure and stage 1 through stage 4 chronic kidney disease, or unspecified chronic kidney disease; I50.32 Chronic diastolic (congestive) heart failure; I70.1 Atherosclerosis of renal artery; Z66 Do not resuscitate; N28.9 Disorder of kidney and ureter, unspecified; I48.91 Unspecified atrial fibrillation; I25.10 Atherosclerotic heart disease of native coronary artery without angina pectoris; E03.9 Hypothyroidism, unspecified; N18.32 Chronic kidney disease, stage 3b; K21.9 Gastro-esophageal reflux disease without esophagitis; N17.9 Acute kidney failure, unspecified; Z96.652 Presence of left artificial knee joint; Z96.641 Presence of right artificial hip joint; Z88.8 Allergy status to other drugs, medicaments and biological substances; Z79.899 Other long term (current) drug therapy; Z79.890 Hormone replacement therapy; Z90.49 Acquired absence of other specified parts of digestive tract; Z95.818 Presence of other cardiac implants and grafts
CPT/HCPCS: 36415; 74177; 80048; 80053; 81001; 83690; 83735; 85025; 87086; 96374; 96375; G0378; J0696; J2405

== ENCOUNTER 2024-06-27 10:42 | Emergency (ER) | payer MEDICARE, BC ==
[2024-06-27 11:21] LABS: #Basophils 0.04 10x3/uL (0.0-0.2); %Basophils 0.4 % (0.0-1.0); %Eosinophils 0.4 % (0.0-10.0); %Lymphocytes 11.1 % (21.0-51.0); %Monocytes 6.8 % (0.0-10.0); %Neutrophils 80.8 % (42.0-75.0); Hematocrit 38.8 % (36.0-47.0); Hemoglobin 13.5 g/dL (12.0-16.0); Mean Corpuscular HGB CONC 34.8 g/dL (32.0-36.0); Mean Corpuscular Hemoglobin 31.8 pg (27.0-31.0); Mean Corpuscular Volume 91.3 fL (78.0-98.0); Mean Platelet Volume 9.2 fL (7.4-10.4); Platelet Count 346 10x3/uL (130-400); RBC Distribution Width 12.9 % (11.5-14.5); Red Blood Cell (RBC) Count 4.25 mill/uL (4.20-5.40)
[2024-06-27 11:40] LABS: ALT (SGPT) 20 U/L (8-55); AST (SGOT) 34 U/L (5-34); Albumin 3.6 g/dL (3.4-4.8); Alkaline Phosphatase 175 U/L (40-110); Anion Gap 13 mmol/L (10-20); BUN (Urea Nitrogen) 16 mg/dL (9.8-20.1); Bilirubin, Total 0.7 mg/dL (0.2-1.2); Calc. Creatinine Clearance 0 mL/min (70-130); Calcium 10.6 mg/dL (7.8-10.44); Carbon Dioxide 27 mmol/L (23-31); Chloride 96 mmol/L (98-107); Estimated GFR 37; Globulin 3.9 g/dL (2.4-3.5); Glucose 119 mg/dL (83-110); Lipase 24 U/L (8-78); Potassium 3.8 mmol/L (3.5-5.1); Protein, Total 7.5 g/dL (5.8-8.1); Sodium 132 mmol/L (136-145)
[2024-06-27] MEDS ORDERED: Acetaminophen 325 MG TAB ONE (12:25)
[2024-06-27 12:57] LABS: Bacteria/HPF None Seen HPF (None Seen); Bilirubin Negative (Negative); Blood, Urine Negative (Negative); CAUTI Indications for Culture Alt mental st,lethar; Clarity Clear (Clear); Glucose, Urine (Dipstick) Normal (Negative); Ketone, Urine Negative (Negative); Leukocyte Negative Leu/uL (Negative); Nitrite Negative (Negative); Protein, Urine (Dipstick) 10 mg/dL (Neg-Trace); RBC/HPF 0-3 HPF (0-3); Specific Gravity, Urine 1.026 (1.002-1.036); Squamous Epithelial 0-3 HPF (0-3); Urobilinogen Normal mg/dL (Less than 2); WBC/HPF 0-3 HPF (0-3); pH, Urine 7.5 (5.0-9.0)
[2024-06-27 13:06] LABS: Urine Culture Reflex No No
[2024-06-27] MEDS ORDERED: HYDROmorphone 0.5 MG/0.5 ML SYRINGE ONE (13:18)
== END 2024-06-27 19:30 ==
LOC: ERS 10:42
DX: R53.1 Weakness (principal); R10.9 Unspecified abdominal pain; M54.9 Dorsalgia, unspecified; I48.91 Unspecified atrial fibrillation; I25.2 Old myocardial infarction
CPT/HCPCS: 74177; 76770; 80053; 81001; 83605; 83690; 84484; 85025; 87086; 93005; J1170; 96374

== ENCOUNTER 2024-07-16 20:43 | Inpatient (IN) | payer MEDICARE, BC ==
[~2024-07-16 20:43] MED LIST: Iopamidol-370 76% 500 ML MDV (1 ML CHARGE) ONE
[2024-07-16] MEDS ORDERED: Ondansetron PF 4 MG/2 ML Vial ONE (21:23)
[2024-07-16] MEDS ORDERED: fentaNYL 50 mcg/mL 1 mL Vial ONE (21:23)
[2024-07-16] MEDS ORDERED: Ketorolac Tromethamine 30 MG (1 mL) VIAL ONE (21:23)
[2024-07-16 21:42] LABS: #Basophils 0.03 10x3/uL (0.0-0.2); %Basophils 0.2 % (0.0-1.0); %Eosinophils 0.4 % (0.0-10.0); %Lymphocytes 11.6 % (21.0-51.0); %Monocytes 6.4 % (0.0-10.0); %Neutrophils 80.6 % (42.0-75.0); Hematocrit 38.1 % (36.0-47.0); Hemoglobin 12.9 g/dL (12.0-16.0); Mean Corpuscular HGB CONC 33.9 g/dL (32.0-36.0); Mean Corpuscular Hemoglobin 31.5 pg (27.0-31.0); Mean Corpuscular Volume 93.2 fL (78.0-98.0); Mean Platelet Volume 9.3 fL (7.4-10.4); Platelet Count 365 10x3/uL (130-400); RBC Distribution Width 13.2 % (11.5-14.5); Red Blood Cell (RBC) Count 4.09 mill/uL (4.20-5.40)
[2024-07-16 21:56] LABS: Prothrombin Time 13.6 sec (12.0-14.7)
[2024-07-16 21:57] LABS: ALT (SGPT) 31 U/L (8-55); AST (SGOT) 55 U/L (5-34); Alkaline Phosphatase 194 U/L (40-110); Anion Gap 14 mmol/L (10-20); BUN (Urea Nitrogen) 17 mg/dL (9.8-20.1); Bilirubin, Total 0.7 mg/dL (0.2-1.2); CK (CPK) 100 U/L (29-168); Calc. Creatinine Clearance 0 mL/min (70-130); Calcium 11.2 mg/dL (7.8-10.44); Carbon Dioxide 26 mmol/L (23-31); Chloride 103 mmol/L (98-107); Estimated GFR 47; Globulin 3.7 g/dL (2.4-3.5); Glucose 77 mg/dL (83-110); Lipase 11 U/L (8-78); Magnesium 1.9 mg/dL (1.6-2.6); PTT 33.3 sec (22.9-36.1); Potassium 3.3 mmol/L (3.5-5.1); Protein, Total 6.7 g/dL (5.8-8.1); Sodium 140 mmol/L (136-145)
[2024-07-16 21:59] LABS: D-Dimer Test 3.39 mcg/mL (0.27-0.43)
[2024-07-17] MEDS ORDERED: Calcium Carbonate 500 MG ChewTAB PO PRN (00:12)
[2024-07-17] MEDS ORDERED: Acetaminophen 650 MG Suppository PR PRN (00:12)
[2024-07-17] MEDS ORDERED: Ondansetron ODT 4 MG TAB PO PRN (00:12)
[2024-07-17] MEDS ORDERED: Ondansetron PF 4 MG/2 ML Vial IVP PRN (00:12)
[2024-07-17] MEDS ORDERED: Electrolyte Replacement Protocol 1 EACH FS PRN (00:53)
[2024-07-17] MEDS ORDERED: Dextrose 5% in Water 1,000 ML IV PRN (00:57)
[2024-07-17] MEDS ORDERED: Dextrose 50% Abboject 50 ML SYRINGE SLOW IVP PRN (00:57)
[2024-07-17] MEDS ORDERED: Glucagon 1 MG/ML KIT IM PRN (00:57)
[2024-07-17 03:30] VITALS: BMI 21.3
[2024-07-17] MEDS: Acetaminophen 325 MG TAB PO SCH (05:26)
[2024-07-17] MEDS: Levothyroxine Sodium 125 MCG TAB PO SCH (05:26)
[2024-07-17] MEDS: Potassium Chloride 20 MEQ TAB PO SCH ×2 (05:34→05:37)
[2024-07-17] MEDS: Magnesium 2 GM/50 ML(in water) 2 GM in Premix 1 BAG IVPB SCH ×2 (05:34→05:37)
[2024-07-17 06:04] LABS: #Basophils 0.05 10x3/uL (0.0-0.2); %Basophils 0.5 % (0.0-1.0); %Eosinophils 0.6 % (0.0-10.0); %Lymphocytes 15.4 % (21.0-51.0); %Monocytes 7.9 % (0.0-10.0); %Neutrophils 74.4 % (42.0-75.0); Hematocrit 35.2 % (36.0-47.0); Hemoglobin 11.8 g/dL (12.0-16.0); Mean Corpuscular HGB CONC 33.5 g/dL (32.0-36.0); Mean Corpuscular Hemoglobin 30.7 pg (27.0-31.0); Mean Corpuscular Volume 91.7 fL (78.0-98.0); Mean Platelet Volume 9.9 fL (7.4-10.4); Platelet Count 325 10x3/uL (130-400); RBC Distribution Width 13.2 % (11.5-14.5); Red Blood Cell (RBC) Count 3.84 mill/uL (4.20-5.40)
[2024-07-17 06:15] LABS: ALT (SGPT) 27 U/L (8-55); AST (SGOT) 48 U/L (5-34); Albumin 2.7 g/dL (3.4-4.8); Alkaline Phosphatase 160 U/L (40-110); Anion Gap 13 mmol/L (10-20); BUN (Urea Nitrogen) 18 mg/dL (9.8-20.1); Bilirubin, Total 0.7 mg/dL (0.2-1.2); Calc. Creatinine Clearance 32 mL/min (70-130); Calcium 10.5 mg/dL (7.8-10.44); Carbon Dioxide 27 mmol/L (23-31); Chloride 102 mmol/L (98-107); Estimated GFR 43; Globulin 3.4 g/dL (2.4-3.5); Glucose 64 mg/dL (83-110); Potassium 3.2 mmol/L (3.5-5.1); Protein, Total 6.1 g/dL (5.8-8.1); Sodium 139 mmol/L (136-145)
[2024-07-17] MEDS: Famotidine 20 MG TAB PO SCH (09:06)
[2024-07-17] MEDS: Amlodipine 5 MG TAB PO SCH ×2 (09:06→12:56)
[2024-07-17] MEDS: Famotidine/PF 20 mg/2ml Vial SLOW IVP SCH (09:07)
[2024-07-17] MEDS: Amiodarone 200 MG TAB PO SCH (09:09)
[2024-07-17 09:42] VITALS: BMI 21.3
[2024-07-17] MEDS: Morphine 2 MG/ML VIAL SLOW IVP PRN (12:53)
[2024-07-17] MEDS: Polyethylene Glycol 3350 17 GM Packet PO SCH (15:45)
[2024-07-17] MEDS: fentaNYL 50 mcg/hour Patch TD SCH (15:52)
[2024-07-17] MEDS: Atorvastatin Calcium 40 MG TAB PO SCH (19:56)
[2024-07-17] MEDS: QUEtiapine 25 MG TAB PO SCH (22:25)
[2024-07-17] MEDS: Haloperidol Lactate 5 MG/ML VIAL SLOW IVP SCH (22:56)
[2024-07-18] MEDS: Amlodipine 10 MG TAB PO SCH (08:46)
[2024-07-18] MEDS: HYDROcodone/Acetaminophen 7.5/325 mg Tablet PO PRN (08:47)
[2024-07-18] MEDS: Polyethylene Glycol 3350 17 GM Packet PO SCH (09:20)
[2024-07-18 10:56] LABS: Anion Gap 14 mmol/L (10-20); BUN (Urea Nitrogen) 15 mg/dL (9.8-20.1); Calc. Creatinine Clearance 36 mL/min (70-130); Calcium 11.1 mg/dL (7.8-10.44); Carbon Dioxide 27 mmol/L (23-31); Chloride 99 mmol/L (98-107); Estimated GFR 48; Glucose 104 mg/dL (83-110); Potassium 3.3 mmol/L (3.5-5.1); Sodium 137 mmol/L (136-145)
[2024-07-18] MEDS: HYDROmorphone 2 MG TAB PO PRN (11:59)
[2024-07-18] MEDS: Potassium Chloride 20 MEQ TAB PO SCH (15:44)
[2024-07-18] MEDS: Melatonin 3 MG TAB PO PRN (20:58)
[2024-07-18] MEDS: Senokot S 8.6-50 MG TAB PO SCH (21:02)
[2024-07-19 06:58] LABS: #Basophils 0.04 10x3/uL (0.0-0.2); #Eosinophils Less than 0.03 10x3/uL (0.0-0.7); %Basophils 0.3 % (0.0-1.0); %Eosinophils 0.1 % (0.0-10.0); %Lymphocytes 7.4 % (21.0-51.0); %Monocytes 5.8 % (0.0-10.0); %Neutrophils 85.5 % (42.0-75.0); Hematocrit 42.4 % (36.0-47.0); Hemoglobin 14.5 g/dL (12.0-16.0); Mean Corpuscular HGB CONC 34.2 g/dL (32.0-36.0); Mean Corpuscular Hemoglobin 31.2 pg (27.0-31.0); Mean Corpuscular Volume 91.2 fL (78.0-98.0); Mean Platelet Volume 9.1 fL (7.4-10.4); Platelet Count 408 10x3/uL (130-400); RBC Distribution Width 13.2 % (11.5-14.5); Red Blood Cell (RBC) Count 4.65 mill/uL (4.20-5.40)
[2024-07-19 07:16] LABS: ALT (SGPT) 32 U/L (8-55); AST (SGOT) 64 U/L (5-34); Alkaline Phosphatase 219 U/L (40-110); Anion Gap 18 mmol/L (10-20); BUN (Urea Nitrogen) 18 mg/dL (9.8-20.1); Bilirubin, Total 0.7 mg/dL (0.2-1.2); Calc. Creatinine Clearance 33 mL/min (70-130); Calcium 11.9 mg/dL (7.8-10.44); Carbon Dioxide 25 mmol/L (23-31); Chloride 100 mmol/L (98-107); Estimated GFR 44; Glucose 116 mg/dL (83-110); Potassium 3.4 mmol/L (3.5-5.1); Sodium 140 mmol/L (136-145)
[2024-07-19] MEDS: Morphine ER 15 MG TAB PO SCH ×2 (10:08→23:00)
[2024-07-19] MEDS: Potassium Chloride 20 MEQ TAB PO SCH (10:11)
[2024-07-19] MEDS ORDERED: Lidocaine 1% PF 5 ML VIAL ONE (10:32)
[2024-07-19] MEDS ORDERED: Sodium Bicarbonate 2.5 MEQ/5 ML SDV ONE (10:33)
[2024-07-19] MEDS ORDERED: Morphine 2 MG/ML VIAL ONE (10:36)
[2024-07-19] MEDS: Morphine IR 10 MG/5 ML UDCUP PO PRN (17:31)
[2024-07-19] MEDS: Sodium Chloride 0.9% 1,000 ML IV SCH (17:33)
[2024-07-19] MEDS: Zoledronic Acid 4 MG in Sodium Chloride 0.9% 100 ML IVPB SCH (17:33)
[2024-07-20 04:46] LABS: #Basophils 0.06 10x3/uL (0.0-0.2); %Basophils 0.4 % (0.0-1.0); %Eosinophils 0.2 % (0.0-10.0); %Lymphocytes 6.4 % (21.0-51.0); %Monocytes 5.4 % (0.0-10.0); %Neutrophils 86.5 % (42.0-75.0); Hematocrit 41.2 % (36.0-47.0); Hemoglobin 13.7 g/dL (12.0-16.0); Mean Corpuscular HGB CONC 33.3 g/dL (32.0-36.0); Mean Corpuscular Hemoglobin 31.1 pg (27.0-31.0); Mean Corpuscular Volume 93.6 fL (78.0-98.0); Mean Platelet Volume 9.5 fL (7.4-10.4); Platelet Count 388 10x3/uL (130-400); RBC Distribution Width 13.2 % (11.5-14.5)
[2024-07-20 05:21] LABS: ALT (SGPT) 34 U/L (8-55); AST (SGOT) 66 U/L (5-34); Albumin 2.7 g/dL (3.4-4.8); Alkaline Phosphatase 196 U/L (40-110); Anion Gap 16 mmol/L (10-20); BUN (Urea Nitrogen) 27 mg/dL (9.8-20.1); Bilirubin, Total 0.6 mg/dL (0.2-1.2); Calc. Creatinine Clearance 33 mL/min (70-130); Calcium 11.3 mg/dL (7.8-10.44); Carbon Dioxide 23 mmol/L (23-31); Chloride 105 mmol/L (98-107); Estimated GFR 44; Globulin 3.6 g/dL (2.4-3.5); Glucose 84 mg/dL (83-110); Potassium 3.1 mmol/L (3.5-5.1); Protein, Total 6.3 g/dL (5.8-8.1); Sodium 141 mmol/L (136-145)
[2024-07-20] MEDS: Potassium Chloride 20 MEQ in Premix 1 BAG IVPB SCH (06:33)
[2024-07-20] MEDS: Aluminum & Magnesium Hydroxide 60 ML, diphenhydrAMINE 150 MG, Lidocaine 2% Viscous Solu... SSW SCH (14:41)
[2024-07-20] MEDS ORDERED: fentaNYL 50 mcg/hour Patch TD SCH (16:00)
[2024-07-20 16:11] LABS: Magnesium 1.9 mg/dL (1.6-2.6)
[2024-07-20] MEDS: Sodium Chloride 0.9% 1,000 ML IV SCH (20:27)
[2024-07-21] MEDS: hydrALAZINE 20 MG/ML VIAL SLOW IVP SCH (03:53)
[2024-07-21 06:01] LABS: #Basophils 0.05 10x3/uL (0.0-0.2); %Basophils 0.3 % (0.0-1.0); %Eosinophils 0.2 % (0.0-10.0); %Lymphocytes 5.5 % (21.0-51.0); %Monocytes 3.4 % (0.0-10.0); %Neutrophils 89.3 % (42.0-75.0); Hemoglobin 13.4 g/dL (12.0-16.0); Mean Corpuscular HGB CONC 33.5 g/dL (32.0-36.0); Mean Corpuscular Hemoglobin 31.2 pg (27.0-31.0); Mean Corpuscular Volume 93.2 fL (78.0-98.0); Mean Platelet Volume 9.8 fL (7.4-10.4); Platelet Count 355 10x3/uL (130-400); RBC Distribution Width 13.3 % (11.5-14.5); Red Blood Cell (RBC) Count 4.29 mill/uL (4.20-5.40)
[2024-07-21] MEDS ORDERED: Electrolyte Replacement Protocol FS PRN (06:30)
[2024-07-21 06:32] LABS: ALT (SGPT) 38 U/L (8-55); AST (SGOT) 72 U/L (5-34); Albumin 2.6 g/dL (3.4-4.8); Alkaline Phosphatase 203 U/L (40-110); Anion Gap 14 mmol/L (10-20); BUN (Urea Nitrogen) 24 mg/dL (9.8-20.1); Bilirubin, Total 0.7 mg/dL (0.2-1.2); Calc. Creatinine Clearance 36 mL/min (70-130); Calcium 9.6 mg/dL (7.8-10.44); Carbon Dioxide 22 mmol/L (23-31); Chloride 107 mmol/L (98-107); Estimated GFR 49; Globulin 3.6 g/dL (2.4-3.5); Glucose 100 mg/dL (83-110); Magnesium 1.8 mg/dL (1.6-2.6); Potassium 3.1 mmol/L (3.5-5.1); Protein, Total 6.2 g/dL (5.8-8.1); Sodium 140 mmol/L (136-145)
[2024-07-21] MEDS ORDERED: Potassium Chloride 20 MEQ TAB PO SCH (08:00)
[2024-07-21] MEDS: Potassium Chloride 20 MEQ in Premix 1 BAG IVPB SCH (08:13)
[2024-07-21] MEDS: Magnesium 2 GM/50 ML(in water) 2 GM in Premix 1 BAG IVPB SCH (08:14)
[2024-07-21] MEDS: NS 0.9% w/ 40 MEQ KCL 1,000 ML IV SCH (08:14)
[2024-07-21] MEDS ORDERED: Magnesium 2 GM/50 ML(in water) 2 GM in Premix 1 BAG IVPB SCH (09:00)
[2024-07-21] MEDS: Potassium Chloride 20 MEQ TAB PO SCH ×2 (10:31→19:27)
[2024-07-21 15:09] LABS: Potassium 3.3 mmol/L (3.5-5.1)
[2024-07-21] MEDS: Morphine 4 MG/ML VIAL SLOW IVP PRN (23:14)
[2024-07-22 06:39] LABS: Magnesium 2.2 mg/dL (1.6-2.6)
[2024-07-22 08:13] LABS: #Basophils 0.04 10x3/uL (0.0-0.2); #Eosinophils Less than 0.03 10x3/uL (0.0-0.7); %Basophils 0.2 % (0.0-1.0); %Lymphocytes 7.6 % (21.0-51.0); %Monocytes 3.8 % (0.0-10.0); %Neutrophils 87.2 % (42.0-75.0); Hematocrit 40.1 % (36.0-47.0); Hemoglobin 12.9 g/dL (12.0-16.0); Mean Corpuscular HGB CONC 32.2 g/dL (32.0-36.0); Mean Corpuscular Hemoglobin 30.9 pg (27.0-31.0); Mean Corpuscular Volume 96.2 fL (78.0-98.0); Mean Platelet Volume 10.1 fL (7.4-10.4); Platelet Count 341 10x3/uL (130-400); RBC Distribution Width 13.6 % (11.5-14.5); Red Blood Cell (RBC) Count 4.17 mill/uL (4.20-5.40)
[2024-07-22 08:21] VITALS: BP 168/76; TEMP 98.5
[2024-07-22 08:27] LABS: Anion Gap 18 mmol/L (10-20); BUN (Urea Nitrogen) 17 mg/dL (9.8-20.1); Calc. Creatinine Clearance 47 mL/min (70-130); Calcium 9.2 mg/dL (7.8-10.44); Carbon Dioxide 17 mmol/L (23-31); Chloride 111 mmol/L (98-107); Estimated GFR 68; Glucose 72 mg/dL (83-110); Potassium 3.8 mmol/L (3.5-5.1); Sodium 142 mmol/L (136-145)
[2024-07-22] MEDS ORDERED: fentaNYL 12 mcg Patch TD SCH (09:00)
[2024-07-22] MEDS: Morphine 2 MG/ML VIAL SLOW IVP SCH (10:25)
[2024-07-22] MEDS: Dextrose 5%-Lactated Ringers 1,000 ML IV SCH (10:28)
[2024-07-22] MEDS: Lorazepam 2 MG/ML VIAL SLOW IVP PRN (12:03)
[2024-07-22] MEDS: Carvedilol 3.125 MG TAB PO SCH (12:56)
== END 2024-07-22 13:44 | disposition hospice, inpatient (51) | DRG 478 ==
LOC: ERS 20:43 → SURG A 07-17 00:20 → OBSVTOIN 07-17 12:53
PROVIDERS: ADMIT Student in an Organized Health Care Education/Training Program; ATTEND Internal Medicine
PROC: 0PB13ZX Excision of 1 to 2 Ribs, Percutaneous Approach, Diagnostic (ICD-10-PCS; principal; 2024-07-19)
DX: C79.51 Secondary malignant neoplasm of bone (principal); C64.1 Malignant neoplasm of right kidney, except renal pelvis; I50.32 Chronic diastolic (congestive) heart failure; G93.40 Encephalopathy, unspecified; N17.9 Acute kidney failure, unspecified; E44.0 Moderate protein-calorie malnutrition; E03.9 Hypothyroidism, unspecified; N18.9 Chronic kidney disease, unspecified; I48.91 Unspecified atrial fibrillation; Z96.653 Presence of artificial knee joint, bilateral; Z66 Do not resuscitate; G89.3 Neoplasm related pain (acute) (chronic); E83.52 Hypercalcemia; E87.6 Hypokalemia; E83.42 Hypomagnesemia; N18.30 Chronic kidney disease, stage 3 unspecified; Z51.5 Encounter for palliative care; Z88.8 Allergy status to other drugs, medicaments and biological substances; Z90.49 Acquired absence of other specified parts of digestive tract; Z95.5 Presence of coronary angioplasty implant and graft; E88.09 Other disorders of plasma-protein metabolism, not elsewhere classified
CPT/HCPCS: 20225; 36415; 36416; 71045; 71260; 74177; 77012; 80048; 80053; 82550; 83605; 83690; 83735; 83880; 84100; 84145; 85025; 85379; 85610; 85730; 88184; 88185; 88305; 88333; 88334; 88341; 88342; 93005; 96365; 96374; 96375; G0378; J0360; J1630; J1885; J2060; J2272; J2405; J3010; J3475; J3480; J3489; J3490; J7030; Q0163; Q9967

== ENCOUNTER 2024-07-22 14:03 | Inpatient (IN) | payer MEDICARE, OTHER ==
[2024-07-22] MEDS ORDERED: Morphine 4 MG/ML VIAL SLOW IVP PRN (14:35)
[2024-07-22] MEDS: Morphine 2 MG/ML VIAL SLOW IVP SCH (16:20)
[2024-07-22 17:17] VITALS: BMI 21.2
[2024-07-23] MEDS: Lorazepam 2 MG/ML VIAL SLOW IVP PRN (03:31)
[2024-07-23] MEDS: Morphine 2 MG/ML VIAL SLOW IVP SCH ×2 (11:34→20:10)
[2024-07-23] MEDS ORDERED: Morphine 2 MG/ML VIAL SLOW IVP SCH ×2 (12:00)
[2024-07-23 12:54] VITALS: BMI 21.2
[2024-07-23] MEDS: Lorazepam 2 MG/ML VIAL SLOW IVP SCH (14:26)
[2024-07-24 08:52] VITALS: BP 100/50; TEMP 97.5
== END 2024-07-24 13:58 | disposition expired | DRG 951 ==
LOC: SURG A 14:03 → MSONC 18:24
PROVIDERS: ADMIT Family Medicine; ATTEND Family Medicine
DX: Z51.5 Encounter for palliative care (principal); N17.9 Acute kidney failure, unspecified; E87.21 Acute metabolic acidosis; G93.40 Encephalopathy, unspecified; E44.0 Moderate protein-calorie malnutrition; C78.7 Secondary malignant neoplasm of liver and intrahepatic bile duct; J98.11 Atelectasis; C64.1 Malignant neoplasm of right kidney, except renal pelvis; I50.32 Chronic diastolic (congestive) heart failure; I13.0 Hypertensive heart and chronic kidney disease with heart failure and stage 1 through stage 4 chronic kidney disease, or unspecified chronic kidney disease; Z66 Do not resuscitate; E83.52 Hypercalcemia; E83.42 Hypomagnesemia; E87.8 Other disorders of electrolyte and fluid balance, not elsewhere classified; R45.1 Restlessness and agitation; R73.9 Hyperglycemia, unspecified; N18.30 Chronic kidney disease, stage 3 unspecified; E87.6 Hypokalemia; E88.09 Other disorders of plasma-protein metabolism, not elsewhere classified; Z96.643 Presence of artificial hip joint, bilateral; Z90.49 Acquired absence of other specified parts of digestive tract; M89.9 Disorder of bone, unspecified; N18.9 Chronic kidney disease, unspecified; I48.91 Unspecified atrial fibrillation; Z68.21 Body mass index [BMI] 21.0-21.9, adult
CPT/HCPCS: J2060; J2272